=== PATIENT | female | born 1955 | race Caucasian/White ===

== ENCOUNTER 2018-04-21 15:31 | Inpatient (IN) | payer SELFPAY ==
[~2018-04-21 15:31] MED LIST: Iopamidol 370 76% 100 ML VIAL ONE
[2018-04-21] MEDS ORDERED: Ondansetron PF 4 MG/2 ML Vial ONE (17:35)
[2018-04-21] MEDS ORDERED: Insulin Regular 300 UNITS/3 ML VIAL ONE (17:35)
[2018-04-21] MEDS ORDERED: Morphine 2 MG/ML SYRINGE ONE (18:52)
--- NOTE | 2018-04-21 19:39 | CT ---
CT OF RIGHT LOWER EXTREMITY PERFORMED WITH AND WITHOUT CONTRAST ENHANCEMENT: 04/21/18 HISTORY: Patient stepped on a screw approximately 12 days ago. Cleaned the wound and not bother until four day s ago when she began having pain and chills. Patient is a diabetic. There are subcutaneous edema changes which are more pronounced along the plantar side of the foot. I do not appreciate any abscess collection. There is no air dissecting within the soft tissues. Calcane al spurs are present. No signs of any acute fractures. There is an old appearing avulsive type injury from the anterolateral side of the distal tibia. The margins of this are corticated and this does no t appear to represent an acute injury. IMPRESSION: 1. Cellulitis changes. No signs of any soft tissue abscess or findings that would suggest osteom yelitis. 2. Old tibial injury. POS: [facility]
[2018-04-21 19:45] VITALS: BMI 27.4
[2018-04-21] MEDS ORDERED: Morphine 4 MG/ML VIAL SLOW IVP PRN (20:04)
[2018-04-21] MEDS ORDERED: Ondansetron ODT 4 MG TAB SL PRN (20:07)
[2018-04-21] MEDS ORDERED: Acetaminophen 325 MG TAB PO PRN (20:07)
[2018-04-21] MEDS: Ondansetron PF 4 MG/2 ML Vial IVP PRN (21:18)
[2018-04-21] MEDS ORDERED: Dextrose 50% Abboject 50 ML SYRINGE SLOW IVP PRN (23:12)
[2018-04-21] MEDS ORDERED: Dextrose 5% in Water 1,000 ML IV PRN (23:12)
[2018-04-21] MEDS ORDERED: HumaLOG 300 UNITS/3 ML VIAL SC PRN (23:12)
[2018-04-21] MEDS ORDERED: VANCOMYCIN IVPB PRN (23:26)
[2018-04-21] MEDS ORDERED: Vancomycin HCl 1.75 GM in Sodium Chloride 0.9% 500 ML IVPB SCH (23:59)
[2018-04-21] MEDS ORDERED: Clindamycin/D5W 900 MG in Premix Bag 1 BAG IVPB SCH (23:59)
[2018-04-22] MEDS ORDERED: Vancomycin HCl 1 GM in Premix Bag 1 BAG IVPB SCH ×2 (01:00→23:59)
[2018-04-22] MEDS: Ondansetron PF 4 MG/2 ML Vial IVP PRN ×2 (03:07→08:29)
[2018-04-22 05:46] LABS: #Monocytes 0.5 thou/uL (0.11-0.59); #Neutrophils 6.4 thou/uL (1.40-6.50); %Basophils 0.2 % (0.0-1.0); %Eosinophils 0.5 % (0.0-10.0); %Monocytes 5.7 % (0.0-10.0); %Neutrophils 81.6 % (42.0-75.0); Hemoglobin 9.9 g/dL (12.0-16.0); Mean Corpuscular HGB CONC 33.3 g/dL (32.0-36.0); Mean Corpuscular Hemoglobin 30.3 pg (27.0-31.0); Mean Corpuscular Volume 90.9 fL (78.0-98.0); Platelet Count 245 thou/uL (130-400); RBC Distribution Width 12.3 % (11.5-14.5); Red Blood Cell (RBC) Count 3.26 mill/uL (4.20-5.40); White Blood Cell (WBC) Count 7.9 thou/uL (4.8-10.8)
[2018-04-22 06:03] LABS: Anion Gap 16 mmol/L (10-20); BUN (Urea Nitrogen) 16 mg/dL (9.8-20.1); Calc. Creatinine Clearance 90 mL/min (70-130); Calcium 8.6 mg/dL (7.8-10.44); Carbon Dioxide 19 mmol/L (23-31); Chloride 103 mmol/L (98-107); Estimated GFR-MDRD 76; Glucose 323 mg/dL (80-115); Potassium 3.6 mmol/L (3.5-5.1); Sodium 134 mmol/L (136-145)
[2018-04-22] MEDS: Gabapentin 300 MG CAP PO SCH ×4 (08:25→20:51)
[2018-04-22] MEDS ORDERED: Dextrose 50% Abboject 50 ML SYRINGE SLOW IVP PRN (09:00)
[2018-04-22] MEDS ORDERED: HumaLOG 300 UNITS/3 ML VIAL SC PRN (09:00)
[2018-04-22 09:33] LABS: Hemoglobin A1c 11.1 % (4.0-6.0)
[2018-04-22] MEDS ORDERED: Sodium Chloride 0.9% 1,000 ML IV SCH (10:45)
[2018-04-22] MEDS ORDERED: Gadobenate Dimeglumine 529 MG/1 ML (20ML VIAL) ONE (10:53)
[2018-04-22] MEDS ORDERED: Meropenem 1 GM in Sodium Chloride 0.9% 100 ML IVPB SCH (11:00)
[2018-04-22] MEDS ORDERED: Famotidine/PF 20 mg/2ml Vial SLOW IVP SCH (11:00)
[2018-04-22] MEDS: Sodium Chloride 0.9% 1,000 ML IV SCH ×3 (11:02→20:53)
[2018-04-22 11:34] LABS: ALT (SGPT) 8 U/L (8-55); AST (SGOT) 10 U/L (5-34); Albumin 3.5 g/dL (3.4-4.8); Alkaline Phosphatase 239 U/L (40-150); Anion Gap 14 mmol/L (10-20); BUN (Urea Nitrogen) 16 mg/dL (9.8-20.1); Bilirubin, Total 0.7 mg/dL (0.2-1.2); Calc. Creatinine Clearance 85 mL/min (70-130); Calcium 9.2 mg/dL (7.8-10.44); Carbon Dioxide 21 mmol/L (23-31); Chloride 104 mmol/L (98-107); Estimated GFR-MDRD 72; Globulin 3.5 g/dL (2.4-3.5); Glucose 297 mg/dL (80-115); Lipase 6 U/L (8-78); Magnesium 2.2 mg/dL (1.6-2.6); Potassium 3.4 mmol/L (3.5-5.1); Sodium 136 mmol/L (136-145)
[2018-04-22] MEDS: Insulin Glargine 10 UNITS in Pre-Filled Syringe 1 EACH SC SCH (11:57)
[2018-04-22] MEDS: HumaLOG 300 UNITS/3 ML VIAL SC PRN ×2 (11:58→17:57)
[2018-04-22] MEDS ORDERED: MEROPENEM 1 GM/50 ML 1 GM in Premix Bag 1 BAG IVPB SCH ×2 (13:00→14:45)
[2018-04-22 13:17] LABS: Bilirubin Negative (Negative); Blood, Urine Large (Negative); Clarity CLOUDY (Clear); Glucose, Urine (Dipstick) >=1000 mg/dL (Negative); Leukocyte Small (Negative); Nitrite Negative (Negative); Protein, Urine (Dipstick) 30 mg/dL (Neg-Trace); Specific Gravity, Urine 1.024 (1.002-1.036); pH, Urine 5.5 (5.0-9.0)
[2018-04-22 13:19] LABS: Bacteria/HPF None Seen HPF (None Seen); Hyaline Casts/LPF 0-3 HYALINE CAST LPF (0-3 Hyaline); Pathc Cast-AUWi Flag 0.14 (0-2.49); RBC/HPF GREATER THAN 50-TNTC HPF (0-3); Squamous Epithelial 0-3 HPF (0-3)
--- NOTE | 2018-04-22 14:46 | HP ---
PRIMARY CARE PHYSICIAN: Dr. Lian Joseph CODE STATUS: Full code. TIME OF EVALUATION: 2300 hours. CHIEF COMPLAINT: Right plantar ulcer with cellulitis. HISTORY OF PRESENT ILLNESS: This is a 62-year-old female patient with past medical history of diabetes, neuropathy, kidney stones, came to the hospital after having an ulcer on the right foot in the plantar area, she noticed for the first time was a week ago, when she reported that a nail had injured her foot, and she did not notice that it was getting that bad. She also reported that she had to take a trip and then the foot was getting worse very quickly. The pain was severe, associated with redness, swelling, inability to bear weight on that foot due to pain. REVIEW OF SYSTEMS: CONSTITUTIONAL: No fever, chills, or generalized weakness. RESPIRATORY: No cough, sputum production, or shortness of breath. CARDIOVASCULAR: No chest pain or palpitations. GASTROINTESTINAL: No nausea. No vomiting. No diarrhea. No abdominal pain. DATA REPORT ANALYST: No dizziness, headache, or feeling lightheaded. GENITOURINARY: No burning on urination. EXTREMITIES: The patient has right plantar area with significant open nonhealing wound for about 1 inch with blackish fungus, surrounded by significant areas of erythema and tenderness. All other systems were reviewed and negative expect for the findings as mentioned above. PAST MEDICAL HISTORY: As reviewed in the HPI. PAST SURGICAL HISTORY: Cholecystectomy, hysterectomy, tonsillectomy. PSYCHIATRIC HISTORY: SOCIAL HISTORY: No alcohol. No drugs. No smoking history. ALLERGIES: KNOWN ALLERGIES TO PENICILLIN. REPORTED MEDICATIONS: Gabapentin. PHYSICAL EXAMINATION: VITAL SIGNS: On presentation, temperature 99.9, blood pressure 160/71, with heart rate of 90, respiratory rate was 18. GENERAL APPEARANCE: The patient is alert, oriented, not in acute distress. HEENT: Normal conjunctivae. Moist oral mucosa. Anicteric. NECK: No JVD. RESPIRATORY: Bilateral air entry. No rales. No wheezing. Symmetric expansion. CARDIOVASCULAR: Normal rate, regular rhythm. No murmurs. No gallops. No edema. ABDOMEN: Soft. Normal bowel sounds. MUSCULOSKELETAL: She has baseline range of motion and strength. No tenderness 1 inch, that is a nonhealing ulcer surrounded by severe redness and swelling. EXTREMITIES: Peripheral pulses are present. Capillary refill seems to be intact. NEUROLOGIC: No evidence of any new focal weakness. The patient has bilateral decrease in sensation. PSYCH: The patient is in good mood, not sad, oriented. Optimal judgment. DIAGNOSTIC STUDIES: CT was reviewed, which shows cellulitic changes, no signs of any soft tissue abscess or findings that would suggest osteomylitis. Labs were reviewed. The ESR for the patient was 16. White count 10.7, hemoglobin of 10.5, and platelet count 234. Chemistry; sodium 133, potassium 3.7, chloride 99, carbon dioxide 22, anion gap 16, BUN 18, creatinine 0.8. GFR 65. Glucose 134. Total bilirubin 1.4, AST 14, ALT 13, alkaline phosphatase 241. C-reactive protein 18.3. ASSESSMENT AND PLAN: The patient was placed in the hospital with the following medical problems: 1. Right foot cellulitis with nonhealing diabetic foot. The patient was placed on broad-spectrum antibiotics. We will consult Surgery for evaluation. No evidence of osteomyelitis at this point. Wound Care already seen the patient in evaluation. 2. Uncontrolled diabetes. We will place the patient on sliding scale, adjust treatment as needed. 3. Normocytic anemia with hemoglobin of 10.5 as inpatient. 4. Hyponatremia. The patient has sodium of 133. We will monitor, this is mild, no need for any acute intervention at this point. 5. Deep vein thrombosis prophylaxis. 6. Uncontrolled blood pressure with systolic of 160 and diastolic 71. The patient reported that she is not taking any medication for blood pressure. We will start small dose of blood pressure medications. We will monitor and we will adjust treatment as needed. Job ID: [id number]
[2018-04-22] MEDS: Promethazine HCl 25 MG in Sodium Chloride 0.9% 50 ML IVPB PRN ×2 (14:48→20:52)
[2018-04-22] MEDS: Ketorolac Tromethamine 30 MG/ML VIAL IVP PRN (18:34)
--- NOTE | 2018-04-22 20:34 | MRI ---
MRI OF RIGHT FOOT PERFORMED WITH AND WITHOUT CONTRAST ENHANCEMENT: Date: 04/22/18 HISTORY: Right foot ulcer and cellulitis. Patient reportedly stepped on a screw. Evaluation for abscess or ost eomyelitis. FINDINGS: A marker is placed on the plantar aspect of the foot near the second and third metatarsophalangeal andrew ints. There are some edema changes within the soft tissues, mainly subcutaneous. There are some edema changes within the intrinsic plantar musculature of the foot, but I see no signs of any abscess marilyn ection and no evidence for osteomyelitis. IMPRESSION: No MR evidence for osteomyelitis or soft tissue abscess. POS: [facility]
[2018-04-22] MEDS ORDERED: Famotidine 20 MG TAB PO SCH (21:00)
--- NOTE | 2018-04-22 22:14 | PDOC.PN ---
- Subjective Encounter Start Date: 04/22/18 Encounter Start Time: 11:00 Patient seen and examined for diabetic foot infection. Intractable N/V. No abd pain. No fever/headache or AMS. Chart reviewed. No other complaints. No overnight events - Objective Resuscitation Status - Order Detail: 04/21/18 23:08 Resuscitation Status Routine Resuscitation Status: FULL: Full Resuscitation MAR Reviewed: Yes Vital Signs & Weight: Vital Signs (12 hours) Temp Pulse Resp BP Pulse Ox 04/22/18 20:00 99.1 F 98 16 120/76 98 04/22/18 17:44 98.2 F 94 16 138/68 99 04/22/18 11:57 98.3 F 104 H 20 176/76 H 100 Weight Admit Weight 165 lb Weight 165 lb I&O: 04/21/18 04/22/18 04/23/18 06:59 06:59 06:59 Intake Total 1939 Balance 1939 Result Diagrams: 04/23/18 05:16 04/23/18 05:16 Additional Labs: Accuchecks 04/22/18 04/22/18 04/22/18 21:03 16:44 11:16 POC Glucose 156 H 262 H 283 H 04/22/18 05:27 POC Glucose 295 H Radiology Reviewed by me: Yes (CT LE - No Osteo) Phys Exam - Physical Examination in distress due to N/V HEENT: PERRLA, moist MMs Neck: no JVD, supple no neck stiffness Respiratory: no wheezing, no rales, no rhonchi, clear to auscultation bilateral Cardiovascular: RRR, no rub no heaves/pulsations Gastrointestinal: soft, non-tender, no distention, positive bowel sounds Musculoskeletal: no edema Rt foot ulcer with cellulitis Neurological: non-focal, normal sensation, moves all 4 limbs Psychiatric: normal affect, A&O x 3 Skin: no rash Dx/Plan (1) Diabetic foot infection Code(s): E11.628 - TYPE 2 DIABETES MELLITUS WITH OTHER SKIN COMPLICATIONS; L08.9 - LOCAL INFECTION OF THE SKIN AND SUBCUTANEOUS TISSUE, UNSP Status: Acute Comment: with cellulitis (2) DKA (diabetic ketoacidoses) Code(s): E13.10 - OTH DIABETES MELLITUS WITH KETOACIDOSIS WITHOUT COMA Status : Acute (3) Hyponatremia Code(s): E87.1 - HYPO-OSMOLALITY AND HYPONATREMIA Status: Acute (4) Chronic pain syndrome Code(s): G89.4 - CHRONIC PAIN SYNDROME Status: Chronic (5) HTN (hypertension) Code(s): I10 - ESSENTIAL (PRIMARY) HYPERTENSION Status: Acute (6) DM2 (diabetes mellitus, type 2) Status: Acute Qualifiers: Chronic kidney disease stage: stage 2 (mild) Comment: uncontrolled. - Plan DVT proph w/SCDs * Change IV Cipro to Meropenem * Await Podiatry input * Consult ID * IVF with SQ Insulin for DKA * Antiemetics * Grease Cup Filler consult * AM labs * Counselled on DM2 Laboratory Tests 04/21/18 04/22/18 04/22/18 16:46 04:19 10:56 Hemoglobin A1c 11.1 H C-Reactive Protein 18.30 H Lipase 6 L B-Hydroxybutyrate 04/22/18 11:00 Hemoglobin A1c C-Reactive Protein Lipase B-Hydroxybutyrate 3.12 H Review of Systems - Review of Systems Respiratory: negative: Cough, Dry, Shortness of Breath, Hemoptysis, SOB with Excertion, Pleuritic Pain, Sputum, Wheezing Cardiovascular: negative: chest pain, palpitations, orthopnea, paroxysmal nocturnal dyspnea, edema, light headedness, other - Medications/Allergies Allergies/Adverse Reactions: Allergies Allergy/AdvReac Type Severity Reaction Status Date / Time Penicillins Allergy Verified 04/21/18 20:15 Medications: Current Medications Dextrose/Water (Dextrose 50%) 25 gm SLOW IVP PRN PRN PRN Reason: Hypoglycemia Famotidine (Pepcid) 20 mg SLOW IVP DAILY [facility] Gabapentin (Neurontin) 600 mg PO BID [facility] Last Admin: 04/22/18 20:51 Dose: 600 mg Glucagon (Glucagon) 1 mg IM PRN PRN PRN Reason: Hypoglycemia Dextrose/Water (D5w) 1,000 mls @ 0 mls/hr IV .Q0M PRN PRN Reason: Hypoglycemia Vancomycin HCl 1 gm/ Device 200 mls @ 200 mls/hr IVPB 2359 [facility] Insulin Glargine 10 units/ (Miscellaneous Medication) 0.1 mls @ 0 mls/hr SC QAM [facility] Last Admin: 04/22/18 11:57 Dose: 0.1 mls Sodium Chloride (Normal Saline 0.9%) 1,000 mls @ 150 mls/hr IV .Q6H40M [facility] Last Admin: 04/22/18 20:53 Dose: 1,000 mls Promethazine HCl 25 mg/ Sodium (Chloride) 51 mls @ 102 mls/hr IVPB Q6H PRN PRN Reason: Nausea Last Admin: 04/22/18 20:52 Dose: 51 mls Meropenem 1 gm/ Device 50 mls @ 50 mls/hr IVPB Q8HR [facility] Insulin Human Lispro (Humalog) 0 units SC .BEDTIME SLIDING SC PRN PRN Reason: Bedtime Correctional Scale Insulin Human Lispro (Humalog) 0 units SC .MODERATE SLIDING SC PRN PRN Reason: Moderate Correctional Scale Last Admin: 04/22/18 17:57 Dose: 6 unit Ketorolac Tromethamine (Toradol) 15 mg IVP Q6H PRN PRN Reason: Pain Stop: 04/27/18 10:57 Last Admin: 04/22/18 18:34 Dose: 15 mg Miscellaneous Medication (Pharmacy To Dose) 1 each IVPB PRN PRN PRN Reason: DIABETIC FOOT INFXN. Ondansetron HCl (Zofran) 4 mg IVP Q6H PRN PRN Reason: Nausea/Vomiting Stop: 04/25/18 04:45 Last Admin: 04/22/18 08:29 Dose: 4 mg
[2018-04-22] MEDS: MEROPENEM 1 GM/50 ML 1 GM in Premix Bag 1 BAG IVPB SCH (22:16)
[2018-04-23] MEDS: MEROPENEM 1 GM/50 ML 1 GM in Premix Bag 1 BAG IVPB SCH ×3 (05:24→21:12)
[2018-04-23 05:42] LABS: #Eosinphils 0.1 thou/uL (0.0-0.7); #Lymphocytes 1.5 thou/uL (1.20-3.40); #Monocytes 0.6 thou/uL (0.11-0.59); #Neutrophils 6.6 thou/uL (1.40-6.50); %Basophils 0.2 % (0.0-1.0); %Eosinophils 1.2 % (0.0-10.0); %Lymphocytes 17.3 % (21.0-51.0); %Monocytes 7.1 % (0.0-10.0); %Neutrophils 74.2 % (42.0-75.0); Hemoglobin 9.2 g/dL (12.0-16.0); Mean Corpuscular HGB CONC 34.8 g/dL (32.0-36.0); Mean Corpuscular Hemoglobin 31.8 pg (27.0-31.0); Mean Corpuscular Volume 91.3 fL (78.0-98.0); Mean Platelet Volume 6.6 fL (7.4-10.4); Platelet Count 275 thou/uL (130-400); RBC Distribution Width 12.3 % (11.5-14.5); Red Blood Cell (RBC) Count 2.89 mill/uL (4.20-5.40); White Blood Cell (WBC) Count 8.9 thou/uL (4.8-10.8)
[2018-04-23 05:59] LABS: ALT (SGPT) 7 U/L (8-55); AST (SGOT) 10 U/L (5-34); Alkaline Phosphatase 185 U/L (40-150); Anion Gap 11 mmol/L (10-20); BUN (Urea Nitrogen) 16 mg/dL (9.8-20.1); Bilirubin, Total 0.4 mg/dL (0.2-1.2); Calc. Creatinine Clearance 80 mL/min (70-130); Calcium 8.3 mg/dL (7.8-10.44); Carbon Dioxide 21 mmol/L (23-31); Chloride 109 mmol/L (98-107); Estimated GFR-MDRD 67; Globulin 2.9 g/dL (2.4-3.5); Glucose 172 mg/dL (80-115); Phosphorus 2.6 mg/dL (2.3-4.7); Potassium 3.2 mmol/L (3.5-5.1); Protein, Total 5.9 g/dL (6.0-8.3); Sodium 138 mmol/L (136-145)
[2018-04-23] MEDS: HumaLOG 300 UNITS/3 ML VIAL SC PRN ×2 (06:00→18:31)
[2018-04-23] MEDS: Sodium Chloride 0.9% 1,000 ML IV SCH (06:01)
[2018-04-23] MEDS: Insulin Glargine 10 UNITS in Pre-Filled Syringe 1 EACH SC SCH (08:19)
[2018-04-23] MEDS: Gabapentin 300 MG CAP PO SCH ×2 (08:19→21:11)
[2018-04-23] MEDS: Famotidine/PF 20 mg/2ml Vial SLOW IVP SCH (08:19)
--- NOTE | 2018-04-23 08:29 | CON ---
DATE OF CONSULTATION: 04/22/2018 REASON FOR CONSULTATION: Foot infection. HISTORY OF PRESENT ILLNESS: A 62-year-old with history of nephrolithiasis, type 2 diabetes, who sustained a perforating injury to the right foot about a week before admission from a screw that penetrated through her flip flop sandals. She tried to clean it, but subsequently developed inflammatory changes, pain and chills, and was sent for admission. No headaches, visual symptoms, sore throat, odynophagia, or dysphagia; has developed vomiting, nausea, and some abdominal cramps after antimicrobials were started. She had 1 loose stool since admission. No genitourinary symptoms. No other joint symptoms. No neurological symptoms. PAST MEDICAL HISTORY: Type 2 diabetes, skin abscesses in hands, nephrolithiasis , hip dislocation. PAST SURGICAL HISTORY: Includes cholecystectomy, hysterectomy, appendectomy, and tonsillectomy. SOCIAL HISTORY: No alcoholic beverage use and no history of smoking. ALLERGIES: PENICILLIN WITH RASH. FAMILY HISTORY: Noncontributory. MEDICATIONS: Current meds: 1. Pepcid. 2. Neurontin. 3. Glucagon. 4. Insulin. 5. Meropenem. 6. Vancomycin. PHYSICAL EXAMINATION: VITAL SIGNS: T-max 98.3, blood pressure 170/76, pulse 104, respirations 16 to 20 , O2 saturation 100. SKIN: Demonstrates the right foot ulcerated area with a necrotic center at the 2nd MPJ skin site, plantar aspect. There is a band of yellowishness under the skin epithelium layer radiating proximally from this ulcer. There is erythema in the dorsal aspect of the foot and edema. HEENT: No lymphadenopathy. Ocular movements conjugate. Oral cavity normal. NECK: Supple. LUNGS: Symmetric, clear breath sounds. HEART: S1, S2. Regular rate. ABDOMEN: Soft, nondistended, nontender. No bladder distention. No other joint inflammatory activity. Pulses are excellent in the lower extremities. Cap refill is normal. NEURO: Nonfocal including cognitive function. LABORATORY DATA: White cell count 7.9, hemoglobin 9.9, platelets 245, with 81% neutrophils. Sodium 134, creatinine 0.77. Normal liver profile. Alkaline phosphatase 239, albumin 3.5. 2 sets of blood cultures pending at this time. There is a CT of lower extremity, which was done yesterday; this was a contrast study. There was evidence of subcutaneous edema, more pronounced along the plantar side of the foot. No abscess collection observed. ASSESSMENT: Diabetes type 2 with a perforating injury, right foot with necrotic ulcer. DISCUSSION: Those perforating injuries have a high risk for development into more complicated processes. We will order an MRI and consultation with Podiatry. Probably will need a surgical debridement. If she has osteomyelitis, then treatment will be with antimicrobial therapy unless there are destructive changes noted in the MRI , but those are not apparent in the plain films and CT scan. Switch her to [facility]. Job ID: [id number] MTDD
[2018-04-23] MEDS: 1/2 NS w/KCL 20 mEq 1,000 ML IV SCH ×2 (08:47→18:46)
[2018-04-23] MEDS: Ketorolac Tromethamine 30 MG/ML VIAL IVP PRN (14:55)
--- NOTE | 2018-04-23 20:50 | PDOC.PN ---
- Subjective Encounter Start Date: 04/23/18 Encounter Start Time: 12:00 Patient seen and examined for Rt foot cellulitis. Rt foot pain +. N/V improving. No other complaints. No overnight events - Objective Resuscitation Status - Order Detail: 04/21/18 23:08 Resuscitation Status Routine Resuscitation Status: FULL: Full Resuscitation MAR Reviewed: Yes Vital Signs & Weight: Vital Signs (12 hours) Temp Pulse Resp BP Pulse Ox 04/23/18 20:00 99.7 F H 94 20 97/60 97 Weight Admit Weight 165 lb Weight 165 lb I&O: 04/22/18 04/23/18 04/24/18 06:59 06:59 06:59 Intake Total 3590 2175 Balance 3590 2175 Result Diagrams: 04/24/18 05:58 04/24/18 05:58 Additional Labs: Accuchecks 04/23/18 04/23/18 04/23/18 20:09 16:18 11:26 POC Glucose 191 H 218 H 155 H 04/23/18 04/23/18 04/22/18 05:00 01:57 21:03 POC Glucose 167 H 172 H 156 H Phys Exam - Physical Examination Constitutional: NAD Respiratory: no wheezing, no rhonchi Cardiovascular: RRR, no rub Gastrointestinal: soft, non-tender, positive bowel sounds Musculoskeletal: no edema Rt foot cellulitis - unchanged Dx/Plan (1) Diabetic foot infection Code(s): E11.628 - TYPE 2 DIABETES MELLITUS WITH OTHER SKIN COMPLICATIONS; L08.9 - LOCAL INFECTION OF THE SKIN AND SUBCUTANEOUS TISSUE, UNSP Status: Acute Comment: with cellulitis (2) DKA (diabetic ketoacidoses) Code(s): E13.10 - OTH DIABETES MELLITUS WITH KETOACIDOSIS WITHOUT COMA Status : Acute Qualifiers: Diabetes mellitus type: type 2 (3) Hyponatremia Code(s): E87.1 - HYPO-OSMOLALITY AND HYPONATREMIA Status: Acute (4) Chronic pain syndrome Code(s): G89.4 - CHRONIC PAIN SYNDROME Status: Chronic (5) HTN (hypertension) Code(s): I10 - ESSENTIAL (PRIMARY) HYPERTENSION Status: Acute (6) DM2 (diabetes mellitus, type 2) Status: Acute Qualifiers: Chronic kidney disease stage: stage 2 (mild) Comment: uncontrolled. - Plan DVT proph w/SCDs Await Podiatry input -: AM labs -: Cont Atbx/Wound care -: Cont sliding scale with Lantus -: Cont other meds as below Review of Systems - Review of Systems Respiratory: negative: Cough, Dry, Shortness of Breath, Hemoptysis, SOB with Excertion, Pleuritic Pain, Sputum, Wheezing Cardiovascular: negative: chest pain, palpitations, orthopnea, paroxysmal nocturnal dyspnea, edema, light headedness, other - Medications/Allergies Allergies/Adverse Reactions: Allergies Allergy/AdvReac Type Severity Reaction Status Date / Time Penicillins Allergy Verified 04/21/18 20:15 Medications: Current Medications Dextrose/Water (Dextrose 50%) 25 gm SLOW IVP PRN PRN PRN Reason: Hypoglycemia Famotidine (Pepcid) 20 mg SLOW IVP DAILY [facility] Last Admin: 04/23/18 08:19 Dose: 20 mg Gabapentin (Neurontin) 600 mg PO BID [facility] Last Admin: 04/23/18 08:19 Dose: 600 mg Glucagon (Glucagon) 1 mg IM PRN PRN PRN Reason: Hypoglycemia Dextrose/Water (D5w) 1,000 mls @ 0 mls/hr IV .Q0M PRN PRN Reason: Hypoglycemia Vancomycin HCl 1 gm/ Device 200 mls @ 200 mls/hr IVPB 2359 [facility] Last Admin: 04/22/18 23:13 Dose: 200 mls Insulin Glargine 10 units/ (Miscellaneous Medication) 0.1 mls @ 0 mls/hr SC QAM [facility] Last Admin: 04/23/18 08:19 Dose: 0.1 mls Promethazine HCl 25 mg/ Sodium (Chloride) 51 mls @ 102 mls/hr IVPB Q6H PRN PRN Reason: Nausea Last Admin: 04/22/18 20:52 Dose: 51 mls Meropenem 1 gm/ Device 50 mls @ 50 mls/hr IVPB Q8HR [facility] Last Admin: 04/23/18 14:37 Dose: 50 mls Potassium Chloride/Sodium Chloride (1/2 Ns W/Kcl 20 Meq) 1,000 mls @ 125 mls/ hr IV .Q8H [facility] Last Admin: 04/23/18 18:46 Dose: 1,000 mls Sodium Chloride (Normal Saline 0.9%) 1,000 mls @ 100 mls/hr IV .Q10H [facility] Insulin Human Lispro (Humalog) 0 units SC .BEDTIME SLIDING SC PRN PRN Reason: Bedtime Correctional Scale Insulin Human Lispro (Humalog) 0 units SC .MODERATE SLIDING SC PRN PRN Reason: Moderate Correctional Scale Last Admin: 04/23/18 18:31 Dose: 4 unit Ketorolac Tromethamine (Toradol) 15 mg IVP Q6H PRN PRN Reason: Pain Stop: 04/27/18 10:57 Last Admin: 04/23/18 14:55 Dose: 15 mg Miscellaneous Medication (Pharmacy To Dose) 1 each IVPB PRN PRN PRN Reason: DIABETIC FOOT INFXN. Ondansetron HCl (Zofran) 4 mg IVP Q6H PRN PRN Reason: Nausea/Vomiting Stop: 04/25/18 04:45 Last Admin: 04/22/18 08:29 Dose: 4 mg
--- NOTE | 2018-04-23 22:36 | HP ---
HISTORY OF PRESENT ILLNESS: Gifty uQintana is a 62-year-old female, who is admitted with right foot problem. She several weeks ago stepped on a screw, is diabetic and removed the foreign body, washed the foot with soap and water, applied antibiotic ointment. She presented to the hospital and was admitted 2 days ago. She had been on intravenous antibiotics. Cellulitis over the dorsum of the foot has receded somewhat, although she has a plantar necrotic tissue beneath the metatarsal plantar joint of the right second toe. CAT scan of the foot reveals soft tissue swelling as did MRI. I have been asked to see her regarding this diabetic foot infection. Podiatry was called 2 days ago and has not yet seen her and on Thursday night, we informed that they would not be able to see her. I was thus called to see her tonight. Dr. Chatman saw her on 04/22/2018 and antibiotics have been adjusted. ALLERGIES: PENICILLIN. SOCIAL HISTORY: Tobacco, none. Alcohol, none. MEDICATIONS: Gabapentin in the hospital. She is on; 1. Sliding scale insulin. 2. Gabapentin. 3. Meropenem. 4. Vancomycin. PAST SURGICAL HISTORY: Appendectomy, cholecystectomy, tonsillectomy, total abdominal hysterectomy and bilateral salpingo-oophorectomy. PAST MEDICAL HISTORY: Neuropathy, diabetes mellitus, and hypertension. SOCIAL HISTORY: The patient lives in [place]. She is . REVIEW OF SYSTEMS: Ten-point noncontributory. PHYSICAL EXAMINATION: VITAL SIGNS: Height 5 feet and 5 inches, weight 165 pounds, BMI 27, temperature 99.4, pulse 87, and blood pressure 122/61. HEAD, EARS, EYES, NOSE AND THROAT: Unremarkable. LUNGS: Clear to auscultation. CARDIAC: Regular rate and rhythm without murmur or gallop. ABDOMEN: Obese, soft, and nontender. EXTREMITIES: Palpable femoral, popliteal, dorsalis pedis, posterior tibial pulses. Right foot reveals cellulitis with the dorsum of the foot. On the plantar aspect beneath the metatarsophalangeal joint of the second toe, there is a necrotic tissue. This extends down the metatarsophalangeal joint on probing. There is purulent discharge. LABORATORY DATA: Blood cultures negative. Cultures not obtained of the foot. CT scan of the foot and MRI did not reveal bony changes, although probing reveals the wound extends down the metatarsophalangeal joint. White count 8, hemoglobin 9.2. Comprehensive metabolic profile normal. Normal renal function. ASSESSMENT/PLAN: Diabetic right foot infection. We would recommend debridement of the right foot. Unfortunately, she has eaten a regular diabetic diet just prior to me seeing her. This will have to be done over the next few days over the weekend when she has adequate n.p.o. status. I have recommended debridement of the right foot with probable amputation of the right second toe and metatarsal and by secondary intention with a wound VAC. There are no radiological CAT scan or MRI changes of osteomyelitis, but this is a deep infection and I am sure amputation will probably be needed and will be prepared to do that in the operating room. Job ID: [id number]
[2018-04-23 23:35] LABS: Vancomycin, Trough 6.7 ug/mL
[2018-04-24] MEDS: Vancomycin HCl 1 GM in Premix Bag 1 BAG IVPB SCH ×3 (00:31→23:54)
[2018-04-24] MEDS: 1/2 NS w/KCL 20 mEq 1,000 ML IV SCH ×2 (04:04→10:41)
[2018-04-24] MEDS: HumaLOG 300 UNITS/3 ML VIAL SC PRN ×3 (06:29→17:23)
[2018-04-24] MEDS: MEROPENEM 1 GM/50 ML 1 GM in Premix Bag 1 BAG IVPB SCH ×3 (06:29→21:55)
[2018-04-24 06:31] LABS: #Eosinphils 0.1 thou/uL (0.0-0.7); #Lymphocytes 1.3 thou/uL (1.20-3.40); #Monocytes 0.6 thou/uL (0.11-0.59); #Neutrophils 6.5 thou/uL (1.40-6.50); %Basophils 0.3 % (0.0-1.0); %Eosinophils 0.8 % (0.0-10.0); %Lymphocytes 15.4 % (21.0-51.0); %Monocytes 7.2 % (0.0-10.0); %Neutrophils 76.2 % (42.0-75.0); Hemoglobin 9.3 g/dL (12.0-16.0); Mean Corpuscular HGB CONC 34.4 g/dL (32.0-36.0); Mean Corpuscular Volume 90.2 fL (78.0-98.0); Mean Platelet Volume 6.5 fL (7.4-10.4); Platelet Count 280 thou/uL (130-400); RBC Distribution Width 12.5 % (11.5-14.5); Red Blood Cell (RBC) Count 2.99 mill/uL (4.20-5.40); White Blood Cell (WBC) Count 8.5 thou/uL (4.8-10.8)
[2018-04-24 06:53] LABS: Anion Gap 12 mmol/L (10-20); BUN (Urea Nitrogen) 11 mg/dL (9.8-20.1); Calc. Creatinine Clearance 91 mL/min (70-130); Calcium 8.2 mg/dL (7.8-10.44); Carbon Dioxide 19 mmol/L (23-31); Chloride 106 mmol/L (98-107); Estimated GFR-MDRD 77; Glucose 270 mg/dL (80-115); Potassium 3.6 mmol/L (3.5-5.1); Sodium 133 mmol/L (136-145)
[2018-04-24] MEDS ORDERED: Sodium Chloride 0.9% 1,000 ML IV SCH (08:00)
[2018-04-24] MEDS ORDERED: Fentanyl 100 MCG/2 ML VIAL ONE (09:24)
[2018-04-24] MEDS ORDERED: Midazolam HCl 2 mg/2 ml Vial ONE (09:32)
[2018-04-24] MEDS: Gabapentin 300 MG CAP PO SCH ×2 (10:41→20:23)
[2018-04-24] MEDS ORDERED: Morphine Sulfate 2 MG/ML SYRINGE SLOW IVP PRN (10:44)
[2018-04-24] MEDS ORDERED: PACU-Morphine 4MG/ML VIAL SLOW IVP PRN (10:44)
[2018-04-24] MEDS ORDERED: HYDROmorphone 2 MG/ML VIAL SLOW IVP PRN (10:44)
[2018-04-24] MEDS ORDERED: Meperidine HCl/PF 25 MG/ML VIAL SLOW IVP PRN (10:44)
[2018-04-24] MEDS ORDERED: Promethazine HCl 25 MG/ML VIAL IM PRN (10:44)
[2018-04-24] MEDS ORDERED: Ondansetron HCl/PF 4 MG/2 ML Vial IVP PRN (10:44)
[2018-04-24] MEDS ORDERED: Promethazine HCl 25 MG/ML VIAL SLOW IVP PRN (10:44)
[2018-04-24] MEDS ORDERED: traMADol HCl 50 MG TAB PO PRN (10:46)
[2018-04-24] MEDS ORDERED: Ondansetron ODT 8 MG TAB PO PRN (10:50)
[2018-04-24] MEDS ORDERED: Ondansetron ODT 4 MG TAB PO PRN (10:50)
[2018-04-24] MEDS: Acetaminophen 500 MG TAB PO PRN (11:27)
[2018-04-24] MEDS ORDERED: Ondansetron PF 4 MG/2 ML Vial ONE (12:41)
[2018-04-24] MEDS ORDERED: Metoclopramide HCl 10 MG/2 ML VIAL ONE (12:41)
[2018-04-24] MEDS ORDERED: PROPOFOL 200 MG/20 ML VIAL ONE (12:41)
[2018-04-24] MEDS ORDERED: Lidocaine 1% PF 5 ML VIAL ONE (12:41)
[2018-04-24] MEDS: Insulin Glargine 10 UNITS in Pre-Filled Syringe 1 EACH SC SCH ×2 (14:08→14:29)
[2018-04-24] MEDS: Famotidine/PF 20 mg/2ml Vial SLOW IVP SCH (14:08)
--- NOTE | 2018-04-24 14:09 | OP ---
DATE OF PROCEDURE: 04/24/2018 PREOPERATIVE DIAGNOSIS: Right foot infection, diabetic with plantar gangrene extending to the metatarsophalangeal joint with negative CT scan, MRI, x-ray of the foot for osteo. PROCEDURE PERFORMED: Debridement of right foot plantar blistered skin and debridement of gangrenous skin, soft tissues extending into the second metatarsophalangeal joint, right foot with resection of the right second toe metatarsal with wound VAC application. Note, excellent blood supply. Excellent pulsatile bleeding. ANESTHESIA: General LMA. DESCRIPTION OF PROCEDURE: The patient was taken to the operating room, where under general anesthesia, right foot was prepared with ChloraPrep and draped in routine fashion. Debridement of the skin, plantar revealed underlying intact skin, except overlying the plantar metatarsophalangeal joint second toe area, where there was a gangrenous 2 cm plug of tissue excised down to the metatarsophalangeal joint, where the tendons and the bone were exposed, thus the second toe and metatarsal were resected opening much plantar skin as possible, resecting the metatarsal with a bone cutter, resecting it proximally with a rongeur. Wound irrigated. Connective tissue debrided sharply. Hemostasis gained with the cautery. Wound Care Team arrived to place wound VAC after it was irrigated. Note, the patient was in the hospital for 2 days. Podiatry was consulted, but they did say that they did not have the resources to see her until I was consulted last night to see her while she is eating a regular diabetic diet. Job ID: [id number]
[2018-04-24] MEDS: traMADol HCl 50 MG TAB PO PRN ×2 (14:12→17:22)
[2018-04-24] MEDS: Ibuprofen 600 MG TAB PO PRN (17:44)
[2018-04-24] MEDS: Ketorolac Tromethamine 30 MG/ML VIAL IVP PRN (21:54)
--- NOTE | 2018-04-24 23:21 | PDOC.PN ---
- Subjective Encounter Start Date: 04/24/18 Encounter Start Time: 12:00 Patient seen and examined for diabetic foot infection. s/p I&D with 2nd toe amputation today. No new complaints. No overnight events - Objective Resuscitation Status - Order Detail: 04/21/18 23:08 Resuscitation Status Routine Resuscitation Status: FULL: Full Resuscitation MAR Reviewed: Yes Vital Signs & Weight: Vital Signs (12 hours) Temp Pulse Resp BP BP Pulse Ox 04/24/18 20:23 97 04/24/18 20:00 98.1 F 87 16 121/63 97 04/24/18 17:25 98.1 F 85 18 152/74 H 98 04/24/18 11:51 98.6 F 88 18 138/68 95 04/24/18 11:40 88 20 145/68 H 99 04/24/18 11:25 99.2 F 95 20 172/77 H 99 Weight Admit Weight 165 lb Weight 165 lb I&O: 04/23/18 04/24/18 04/25/18 06:59 06:59 06:59 Intake Total 3590 3565 1800 Output Total 1800 Balance 3590 3565 0 Result Diagrams: 04/24/18 05:58 04/24/18 05:58 Additional Labs: Accuchecks 04/24/18 04/24/18 04/24/18 21:22 16:39 11:41 POC Glucose 259 H 248 H 185 H 04/24/18 05:25 POC Glucose 274 H Phys Exam - Physical Examination Constitutional: NAD Respiratory: no wheezing, no rhonchi Cardiovascular: RRR, no rub Gastrointestinal: soft, non-tender, positive bowel sounds Musculoskeletal: no edema Rt foot dressing Neurological: moves all 4 limbs Dx/Plan (1) Diabetic foot infection Code(s): E11.628 - TYPE 2 DIABETES MELLITUS WITH OTHER SKIN COMPLICATIONS; L08.9 - LOCAL INFECTION OF THE SKIN AND SUBCUTANEOUS TISSUE, UNSP Status: Acute Comment: with cellulitis (2) DKA (diabetic ketoacidoses) Code(s): E13.10 - OTH DIABETES MELLITUS WITH KETOACIDOSIS WITHOUT COMA Status : Acute Qualifiers: Diabetes mellitus type: type 2 (3) Hyponatremia Code(s): E87.1 - HYPO-OSMOLALITY AND HYPONATREMIA Status: Acute (4) Chronic pain syndrome Code(s): G89.4 - CHRONIC PAIN SYNDROME Status: Chronic (5) HTN (hypertension) Code(s): I10 - ESSENTIAL (PRIMARY) HYPERTENSION Status: Acute (6) DM2 (diabetes mellitus, type 2) Status: Chronic Qualifiers: Chronic kidney disease stage: stage 2 (mild) Comment: uncontrolled. - Plan continue antibiotics, DVT proph w/SCDs Cont Vanc/Meropenem with wound care -: Add Glipizide, Increase Lantus dose, Cont Mod sliding scale -: AM labs -: Cont other meds as below Review of Systems - Review of Systems Respiratory: negative: Cough, Dry, Shortness of Breath, Hemoptysis, SOB with Excertion, Pleuritic Pain, Sputum, Wheezing Cardiovascular: negative: chest pain, palpitations, orthopnea, paroxysmal nocturnal dyspnea, edema, light headedness, other - Medications/Allergies Allergies/Adverse Reactions: Allergies Allergy/AdvReac Type Severity Reaction Status Date / Time Penicillins Allergy Verified 04/21/18 20:15 Medications: Current Medications Acetaminophen (Tylenol) 1,000 mg PO Q6H PRN PRN Reason: Moderate to Severe Pain (6-10) Last Admin: 04/24/18 11:27 Dose: 1,000 mg Dextrose/Water (Dextrose 50%) 25 gm SLOW IVP PRN PRN PRN Reason: Hypoglycemia Gabapentin (Neurontin) 600 mg PO BID [facility] Last Admin: 04/24/18 20:23 Dose: 600 mg Glipizide (Glucotrol) 5 mg PO BID[facility] Glucagon (Glucagon) 1 mg IM PRN PRN PRN Reason: Hypoglycemia Dextrose/Water (D5w) 1,000 mls @ 0 mls/hr IV .Q0M PRN PRN Reason: Hypoglycemia Insulin Glargine 10 units/ (Miscellaneous Medication) 0.1 mls @ 0 mls/hr SC QAM [facility] Last Admin: 04/24/18 14:29 Dose: 0.1 mls Promethazine HCl 25 mg/ Sodium (Chloride) 51 mls @ 102 mls/hr IVPB Q6H PRN PRN Reason: Nausea Last Admin: 04/22/18 20:52 Dose: 51 mls Meropenem 1 gm/ Device 50 mls @ 50 mls/hr IVPB Q8HR [facility] Last Admin: 04/24/18 21:55 Dose: 50 mls Vancomycin HCl 1 gm/ Device 200 mls @ 200 mls/hr IVPB 1200,2359 [facility] Last Admin: 04/24/18 11:27 Dose: 200 mls Ibuprofen (Motrin) 600 mg PO Q6H PRN PRN Reason: Pain Last Admin: 04/24/18 17:44 Dose: 600 mg Insulin Human Lispro (Humalog) 0 units SC .BEDTIME SLIDING SC PRN PRN Reason: Bedtime Correctional Scale Last Admin: 04/24/18 22:06 Dose: 3 unit Insulin Human Lispro (Humalog) 0 units SC .MODERATE SLIDING SC PRN PRN Reason: Moderate Correctional Scale Last Admin: 04/24/18 17:23 Dose: 4 unit Ketorolac Tromethamine (Toradol) 15 mg IVP Q6H PRN PRN Reason: Pain Stop: 04/27/18 10:57 Last Admin: 04/24/18 21:54 Dose: 15 mg Miscellaneous Medication (Pharmacy To Dose) 1 each IVPB PRN PRN PRN Reason: DIABETIC FOOT INFXN. Ondansetron HCl (Zofran) 4 mg IVP Q6H PRN PRN Reason: Nausea/Vomiting Stop: 04/25/18 04:45 Last Admin: 04/22/18 08:29 Dose: 4 mg Ondansetron HCl (Zofran Odt) 8 mg PO BIDPRN PRN PRN Reason: Nausea/Vomiting Ondansetron HCl (Zofran Odt) 4 mg PO Q6H PRN PRN Reason: Nausea/Vomiting Tramadol HCl (Ultram) 50 mg PO Q6H PRN PRN Reason: Pain Last Admin: 04/24/18 17:22 Dose: 50 mg Tramadol HCl (Ultram) 100 mg PO Q6H PRN PRN Reason: Pain
[2018-04-25] MEDS: MEROPENEM 1 GM/50 ML 1 GM in Premix Bag 1 BAG IVPB SCH ×3 (05:12→21:00)
[2018-04-25] MEDS: HumaLOG 300 UNITS/3 ML VIAL SC PRN (06:16)
[2018-04-25 07:51] LABS: #Eosinphils 0.1 thou/uL (0.0-0.7); #Lymphocytes 0.8 thou/uL (1.20-3.40); #Monocytes 0.4 thou/uL (0.11-0.59); #Neutrophils 3.8 thou/uL (1.40-6.50); %Basophils 0.2 % (0.0-1.0); %Eosinophils 2.8 % (0.0-10.0); %Lymphocytes 14.9 % (21.0-51.0); %Monocytes 8.2 % (0.0-10.0); %Neutrophils 73.9 % (42.0-75.0); Mean Corpuscular Volume 91.4 fL (78.0-98.0); Mean Platelet Volume 6.6 fL (7.4-10.4); Platelet Count 229 thou/uL (130-400); RBC Distribution Width 12.4 % (11.5-14.5); Red Blood Cell (RBC) Count 2.81 mill/uL (4.20-5.40); White Blood Cell (WBC) Count 5.1 thou/uL (4.8-10.8)
[2018-04-25 08:03] LABS: Anion Gap 11 mmol/L (10-20); BUN (Urea Nitrogen) 11 mg/dL (9.8-20.1); Calc. Creatinine Clearance 97 mL/min (70-130); Calcium 8.3 mg/dL (7.8-10.44); Carbon Dioxide 25 mmol/L (23-31); Chloride 106 mmol/L (98-107); Estimated GFR-MDRD 83; Glucose 258 mg/dL (80-115); Potassium 3.7 mmol/L (3.5-5.1); Sodium 138 mmol/L (136-145)
[2018-04-25] MEDS: glipiZIDE 5 MG TAB PO SCH ×2 (08:29→17:00)
[2018-04-25] MEDS: Gabapentin 300 MG CAP PO SCH ×2 (08:29→20:15)
[2018-04-25] MEDS: Ibuprofen 600 MG TAB PO PRN (08:30)
[2018-04-25] MEDS: traMADol HCl 50 MG TAB PO PRN ×2 (08:32→17:01)
[2018-04-25] MEDS: Insulin Glargine 15 UNITS in Pre-Filled Syringe 1 EACH SC SCH (08:33)
[2018-04-25] MEDS ORDERED: Ketorolac Tromethamine 30 MG/ML VIAL IVP PRN (09:00)
[2018-04-25] MEDS ORDERED: ALPRAZolam 0.5 MG TAB PO PRN (09:02)
[2018-04-25] MEDS ORDERED: Enoxaparin Sodium 40 MG/0.4 ML SYRINGE SC SCH (10:00)
--- NOTE | 2018-04-25 10:30 | PRG ---
DATE OF SERVICE: 04/25/2018 SUBJECTIVE: The patient is seen and examined at the bedside. She seems to be quite anxious during my visit. She is concerned about infection she has in her right foot. Her appetite is fair. Bowel movements daily. OBJECTIVE: VITAL SIGNS: Blood pressure is 144/76, pulse is 78, temperature is 97.9, maximal temperature for the last 24 hours is 100.9, respiratory rate 12, O2 saturation is 97% on room air. HEENT: The head is atraumatic, normocephalic. Eyes are PERRLA. Sclerae are nonicteric. Oral mucosa is moist. NECK: Supple. No lymphadenopathy. Thyroid is not palpable. LUNGS: Clear. HEART: S1 and S2, normal. No S3. No S4. No murmur. ABDOMEN: Soft and nontender. Bowel sounds are present. No organomegaly. EXTREMITIES: Right foot is wrapped. There is a wound VAC in place. There is not much swelling in the ankle area. LABORATORY DATA: Labs showed white count of 5.1, hemoglobin 9.0, hematocrit 25.7, platelet count 229,000. Normal electrolytes, normal kidney function, and normal BUN. Her glucose is 258. Microbiology: Right foot bacterial culture, Gram stain showed few wbc's, few gram-positive cocci, and few yeasts. Preliminary report on culture is Staphylococcus aureus, quantitation is few, and further results are pending. Two blood cultures, negative. IMPRESSION: 1. Diabetic foot infection and cellulitis, status post debridement of the right foot plantar blistered skin and debridement of gangrenous skin and soft tissues extending into the second metatarsophalangeal joint along with right foot with resection of the right 2nd toe metatarsal with wound VAC application. 2. Diabetic ketoacidosis, resolved. 3. Hyponatremia, resolved. 4. Chronic pain syndrome. 5. Hypertension, stable. 6. Diabetes mellitus. Her glycemia is ranging more than 200. Her insulin was increased from 10 to 15 units, and she was started on oral glipizide. PLAN: To continue both antibiotics until we have final reports on cultures, vancomycin and meropenem. We will continue wound care. We will continue wound VAC. We will do Accu-Cheks a.c. and at bedtime and watch her closely to get her glycemia under 200 today with new dosing on both insulin and newly-started antidiabetic pill. We will continue DVT prophylaxis. Job ID: [id number]
[2018-04-25 11:51] LABS: Vancomycin, Trough 13.5 ug/mL
--- NOTE | 2018-04-25 12:43 | PRG ---
DATE OF SERVICE: 04/25/2018 SUBJECTIVE: Gifty Quintana is doing well today. Her pain is under good control. Wound VAC is in place and has been improved. Once the wound VAC is acquired, she could be discharged home tomorrow on oral antibiotics and follow up in my office in 2 to 3 weeks. She can weight bear as tolerated with a postoperative shoe when she is out of bed. She lives in [place] and home health nursing can be established for wound VAC care. We will look at her wound tomorrow. Job ID: [id number]
[2018-04-25] MEDS: Vancomycin HCl 1.25 GM in Sodium Chloride 0.9% 250 ML 250 ML IVPB SCH ×2 (12:48→23:09)
[2018-04-25] MEDS: Acetaminophen 500 MG TAB PO PRN (20:15)
[2018-04-26] MEDS: MEROPENEM 1 GM/50 ML 1 GM in Premix Bag 1 BAG IVPB SCH ×2 (05:44→14:26)
[2018-04-26] MEDS: glipiZIDE 5 MG TAB PO SCH ×2 (08:20→16:35)
[2018-04-26] MEDS: Gabapentin 300 MG CAP PO SCH (08:21)
[2018-04-26] MEDS: Insulin Glargine 15 UNITS in Pre-Filled Syringe 1 EACH SC SCH (08:25)
[2018-04-26] MEDS ORDERED: Enoxaparin Sodium 40 MG/0.4 ML SYRINGE SC SCH (09:00)
[2018-04-26] MEDS: Vancomycin HCl 1.25 GM in Sodium Chloride 0.9% 250 ML 250 ML IVPB SCH (12:05)
[2018-04-26] MEDS: HumaLOG 300 UNITS/3 ML VIAL SC PRN ×2 (12:08→16:35)
--- NOTE | 2018-04-26 14:46 | DIS ---
DATE OF ADMISSION: 04/21/2018 DATE OF DISCHARGE: 04/26/2018 PRIMARY CARE PROVIDER: Domitila Joseph. DISPOSITION: Discharged to home. FINAL DIAGNOSES: 1. Diabetic ulcer on the plantar surface of the right foot. 2. Diabetes mellitus, type 2. DISCHARGE MEDICATIONS: Insulin glargine 16 units subcu q.a.m. ALLERGIES: PENICILLINS. HOWEVER, SHE STATED THAT SINCE SHE WAS TOLD SHE HAD PENICILLIN ALLERGY, SHE HAS TAKEN AMPICILLIN, AMOXICILLIN, SO THAT IT IS NOT, AT THIS TIME, CONSIDERED AN ALLERGY. DIET: Diabetic. CODE STATUS: Full. PENDING AT TIME OF DISCHARGE: Nothing. HOSPITAL COURSE: The patient presented to the emergency room, painful lesion on the plantar surface of her right foot. She had stepped on a screw. She had been washing it, putting topical antibiotics on it. She has a history of diabetes and diabetic neuropathy without any listed medications. She was taken to the operating room on 04/24/[address] Arsenio Bray and underwent debridement and resection of right second toe. She is currently being followed by wound VAC by Wound Care. She has a wound VAC on and has been discharged with a wound VAC to be followed up by [facility] outpatient Wound Care. She was also seen in consultation by Dr. Yeison Chatman. She has no elevated white count. No fever. The postop wound is clean and she is being discharged on Vibramycin. She notes no significant pain in the site even with dressing changes. Follow up in 7 days with Domitila Joseph. Follow up in 2 to [address] Arsenio Bray. Job ID: [id number]
[2018-04-26 16:58] VITALS: BP 135/66; TEMP 99
--- NOTE | 2018-04-26 17:45 | PRG ---
DATE OF SERVICE: 04/26/2018 SUBJECTIVE: The patient had a resection of the 2nd toe at the ray level. The operative report was reviewed. Pathology is pending at this time. OBJECTIVE: VITAL SIGNS: Otherwise normal. LUNGS: Clear. HEART: S1, S2. Regular rate. ABDOMEN: Soft, not distended. LABORATORY DATA: Microbiology: Right foot Staph aureus and enterococcus species. Pending susceptibility and identification and the labs are not particularly remarkable. ASSESSMENT AND DISCUSSION: Type 2 diabetes with perforating injury of right foot with necrotic ulcer, status post ray amputation. The patient should have a clear margin since the bone did not appear involved, just the soft tissue. She is eligible for discharge planning on oral antimicrobial therapy guided by the susceptibility results of the organisms identified in the latest sample. Job ID: [id number]
--- NOTE | 2018-04-26 17:51 | PRG ---
DATE OF SERVICE: 04/26/2018 Ms. Quintana is doing well today. Her foot looks good. The wound is granulating. The wound VAC is reapplied. From a surgical standpoint, the patient is ready to be discharged home. She can follow up in my office in 2 to 3 weeks. Home Health will do a wound VAC. Job ID: [id number]
--- NOTE | 2018-04-27 22:26 | EKG ---
Test Reason : Blood Pressure : / mmHG Vent. Rate : 100 BPM Atrial Rate : 100 BPM P-R Int : 144 ms QRS Dur : 086 ms QT Int : 368 ms P-R-T Axes : 052 007 049 degrees QTc Int : 474 ms Poor data quality, interpretation may be adversely affected Normal sinus rhythm Normal ECG No previous ECGs available Confirmed by Alexia HAYWARD ([id number]) on 04/27/2018 10:26:18 PM Referred By: CARLOS Confirmed By:Alexia HAYWARD
== END 2018-04-26 17:38 | disposition home or self-care (01) | DRG 629 ==
LOC: ERS 15:31 → T4-B 17:05
PROVIDERS: ADMIT Internal Medicine; ATTEND Internal Medicine
PROC: 0QBN0ZZ Excision of Right Metatarsal, Open Approach (ICD-10-PCS; principal; 2018-04-21)
DX: E11.621 Type 2 diabetes mellitus with foot ulcer (principal); E11.52 Type 2 diabetes mellitus with diabetic peripheral angiopathy with gangrene; L03.115 Cellulitis of right lower limb; I96 Gangrene, not elsewhere classified; E87.1 Hypo-osmolality and hyponatremia; E11.628 Type 2 diabetes mellitus with other skin complications; L97.519 Non-pressure chronic ulcer of other part of right foot with unspecified severity; Z79.4 Long term (current) use of insulin; E13.10 Other specified diabetes mellitus with ketoacidosis without coma; G89.4 Chronic pain syndrome; I10 Essential (primary) hypertension
CPT/HCPCS: 36415; 36416; 80048; 80053; 80202; 81001; 82010; 83036; 83690; 83735; 84100; 85025; 85652; 86140; 87070; 87077; 87186; 87205; 88305; 88311; 93005; 93010; 96374; 96375; A9579; G8978-GP-CJ; G8979-GP-CJ; G8980-GP-CJ; J0744; J1650; J1815; J1885; J2001; J2185; J2250; J2270; J2405; J2550; J2704; J2765; J3010; J3370; J3490; J7050; S0028

== ENCOUNTER 2018-04-28 15:56 | Outpatient (CLI) | payer SELFPAY ==
[~2018-04-28 15:56] MED LIST changes: -Iopamidol 370 76% 100 ML VIAL ONE; +Sodium Chloride 3% (15 ML) NEB ONE
== END 2018-04-28 15:57 | disposition home or self-care (01) ==
LOC: WCC 15:56
PROVIDERS: ATTEND Family Medicine
DX: T81.89XD Other complications of procedures, not elsewhere classified, subsequent encounter (principal)
CPT/HCPCS: 97605

== ENCOUNTER 2018-04-30 13:45 | Outpatient (CLI) | payer SELFPAY ==
[2018-04-30] MEDS ORDERED: Sodium Chloride 0.9% 15 ML NEB ONE (15:00)
== END 2018-04-30 13:46 | disposition home or self-care (01) ==
LOC: WCC 13:45
PROVIDERS: ATTEND Podiatrist Foot & Ankle Surgery
DX: T81.89XD Other complications of procedures, not elsewhere classified, subsequent encounter (principal)
CPT/HCPCS: 97605; A4218

== ENCOUNTER 2018-05-04 10:19 | Outpatient (CLI) | payer SELFPAY ==
[2018-05-04] MEDS ORDERED: Sodium Chloride 0.9% 15 ML NEB ONE (15:00)
== END 2018-05-04 10:20 | disposition home or self-care (01) ==
LOC: WCC 10:19
PROVIDERS: ATTEND Podiatrist Foot & Ankle Surgery
DX: T81.89XD Other complications of procedures, not elsewhere classified, subsequent encounter (principal)
CPT/HCPCS: 97605; A4218

== ENCOUNTER 2018-05-10 12:33 | Outpatient (CLI) | payer SELFPAY ==
[2018-05-10] MEDS ORDERED: Sodium Chloride 0.9% 15 ML NEB ONE (14:23)
== END 2018-05-10 12:34 | disposition home or self-care (01) ==
LOC: WCC 12:33
PROVIDERS: ATTEND Podiatrist Foot & Ankle Surgery
DX: T81.89XD Other complications of procedures, not elsewhere classified, subsequent encounter (principal)
CPT/HCPCS: 97605; A4218

== ENCOUNTER 2018-05-14 10:57 | Outpatient (CLI) | payer SELFPAY ==
[~2018-05-14 10:57] MED LIST changes: +Lidocaine 2% PF 100 mg/5 ml Syringe ONE; +Sodium Chloride 0.9% 15 ML NEB ONE; -Sodium Chloride 3% (15 ML) NEB ONE
--- NOTE | 2018-05-14 17:23 | PRG ---
DATE OF SERVICE: 05/14/2018 SUBJECTIVE: A 62-year-old female, who returns today for followup ulceration, status post right second toe amputation. Has been doing well with wound VAC changes. Had no problems or acute events over the last week. Denies nausea, vomiting, fevers, or chills. She thinks the wound is actually looking better. OBJECTIVE: Ulceration to the right second toe amputation site measuring 3.8 cm x 1.8 cm x 2.5 cm of depth with 25% slough, 75% granulation tissue. No periwound erythema, edema, or warmth. ASSESSMENT: Non-pressure chronic ulceration, status post right second toe amputation. PLAN: 1. Full-thickness debridement of subcutaneous tissue layer removing all nonviable tissue, slough, and biofilm from the wound base down to bleeding granular wound base. This was performed with a sterile 15 blade and dermal curette. The patient tolerated procedure well without need for anesthesia. 2. Going to continue with wound VAC changes three times a week at 125 mmHg negative pressure. Continuous therapy on the wound VAC. 3. The patient will follow up with me in 1 week. Job ID: [id number]
== END 2018-05-14 10:58 | disposition home or self-care (01) ==
LOC: WCC 10:57
PROVIDERS: ATTEND Podiatrist Foot & Ankle Surgery
DX: L97.519 Non-pressure chronic ulcer of other part of right foot with unspecified severity (principal); Z89.421 Acquired absence of other right toe(s)
CPT/HCPCS: 11042; 36416; A4218; J2001

== ENCOUNTER 2018-05-19 10:39 | Outpatient (CLI) | payer OTHER, SELFPAY ==
[2018-05-19] MEDS ORDERED: Sodium Chloride 0.9% 15 ML NEB ONE (15:00)
== END 2018-05-19 10:40 | disposition home or self-care (01) ==
LOC: WCC 10:39
PROVIDERS: ATTEND Podiatrist Foot & Ankle Surgery
DX: L97.519 Non-pressure chronic ulcer of other part of right foot with unspecified severity (principal); Z89.421 Acquired absence of other right toe(s)
CPT/HCPCS: 97605; A4218

== ENCOUNTER 2018-05-21 10:59 | Outpatient (CLI) | payer SELFPAY ==
[2018-05-21] MEDS ORDERED: Sodium Chloride 0.9% 15 ML NEB ONE (15:00)
--- NOTE | 2018-05-21 16:20 | PRG ---
DATE OF SERVICE: 05/21/2018 WOUND CLINIC NOTE SUBJECTIVE: A 62-year-old female returns today, status post right second toe amputation, doing well with wound VAC changes over the last week. No acute events. Denies nausea, vomiting, fevers, chills. She has been sitting in her bed, watching [employer] movies much as possible. OBJECTIVE: Open ulceration to the right second toe amputation site measuring 3 cm x 1.5 cm x 2.7 cm, has 75% granulation tissue, 25% slough. No periwound erythema, edema, or warmth. There is moderate serosanguineous drainage. Does not probe to tendon or bone. ASSESSMENT: Non-pressure chronic ulceration to the right second toe, status post right second digit amputation. PLAN: 1. Full-thickness debridement of subcutaneous tissue layer removing all nonviable tissue and biofilm from the wound base, as well as all slough by sharp debridement with dermal curette and 15 blade scalpel. The patient tolerated the procedure well. 2. Going to continue with wound VAC changes three times a week. VAC is set at 125 mm of continual therapy. The patient will follow up with me in one week. Job ID: [id number]
== END 2018-05-21 11:00 | disposition home or self-care (01) ==
LOC: WCC 10:59
PROVIDERS: ATTEND Podiatrist Foot & Ankle Surgery
DX: L97.519 Non-pressure chronic ulcer of other part of right foot with unspecified severity (principal); Z89.421 Acquired absence of other right toe(s)
CPT/HCPCS: 11042; A4218

== ENCOUNTER 2018-05-25 10:55 | Outpatient (CLI) | payer OTHER, SELFPAY | END 2018-05-25 10:56 | disposition home or self-care (01) | LOC: WCC 10:55 | PROVIDERS: ATTEND Podiatrist Foot & Ankle Surgery | DX: Z48.89 Encounter for other specified surgical aftercare (principal); Z98.890 Other specified postprocedural states | CPT/HCPCS: 97605 ==

== ENCOUNTER 2018-05-28 09:41 | Outpatient (CLI) | payer OTHER, SELFPAY ==
[2018-05-28] MEDS ORDERED: Sodium Chloride 0.9% 15 ML NEB ONE (13:50)
--- NOTE | 2018-05-28 16:53 | PRG ---
DATE OF SERVICE: 05/28/2018 WOUND CLINIC NOTE SUBJECTIVE: A 62-year-old female returns today for followup, right second toe amputation. She has been having wound VAC changes three times a week. No issues since last visit. Denies nausea, vomiting, fevers or chills. OBJECTIVE: Ulcer to the right second toe amputation site measuring 3.3 cm x 1.5 cm and only 0.8 cm of depth, 100% granulation tissue. Light serosanguineous drainage. Some slight macerations around the border. No periwound erythema or edema or warmth. ASSESSMENT: Non pressure chronic ulceration of right second toe amputation site. PLAN: 1. Full-thickness debridement of subcutaneous tissue layer removing all nonviable tissue and biofilm from the wound base down to bleeding granular wound base. The patient tolerated the procedure well. 2. I am going to discontinue the wound VAC at this time and start her on a daily collagen gauze dressing change. She can follow up with me in one week. Job ID: [id number]
== END 2018-05-28 09:42 | disposition home or self-care (01) ==
LOC: WCC 09:41
PROVIDERS: ATTEND Podiatrist Foot & Ankle Surgery
DX: T87.89 Other complications of amputation stump (principal); L97.519 Non-pressure chronic ulcer of other part of right foot with unspecified severity
CPT/HCPCS: 97602

== ENCOUNTER 2018-06-04 11:14 | Outpatient (CLI) | payer SELFPAY ==
[~2018-06-04 11:14] MED LIST changes: -Lidocaine 2% PF 100 mg/5 ml Syringe ONE
--- NOTE | 2018-06-04 11:59 | PRG ---
DATE OF SERVICE: 06/04/2018 WOUND CLINIC NOTE SUBJECTIVE: A 62-year-old female returns today, status post right 2nd toe amputation. She has been using collagen dressing changes on a daily basis. No acute events. Denies nausea or vomiting, fevers or chills. OBJECTIVE: Ulceration to the right 2nd toe amputation site measuring 3 cm x 1 cm x 0.6 cm of depth. There is 100% granulation tissue. One central area of hypergranular tissue. Does not probe to tendon or bone. No periwound erythema, edema, or warmth. ASSESSMENT: Non-pressure chronic ulceration, status post right 2nd toe amputation. PLAN: 1. Full-thickness debridement of subcutaneous tissue layer removing all nonviable tissue and biofilm from the wound base. The Hypergranular tissue was resected as well. The patient tolerated the procedure well. 2. We are going to continue with daily collagen dressing changes. She will follow up with me in 1 week. Job ID: [id number]
== END 2018-06-04 11:15 | disposition home or self-care (01) ==
LOC: WCC 11:14
PROVIDERS: ATTEND Podiatrist Foot & Ankle Surgery
DX: L97.519 Non-pressure chronic ulcer of other part of right foot with unspecified severity (principal); Z89.421 Acquired absence of other right toe(s)
CPT/HCPCS: 11042; A4218

== ENCOUNTER 2018-06-11 09:18 | Outpatient (CLI) | payer SELFPAY ==
--- NOTE | 2018-06-11 10:22 | PRG ---
DATE OF SERVICE: 06/11/2018 WOUND CLINIC NOTE SUBJECTIVE: A 62-year-old female who follows up for chronic wound, status post right second toe amputation. Has been doing daily gauze dressing changes. Denies acute events since last visit. Denies nausea, vomiting, fevers or chills. PHYSICAL EXAMINATION: Ulceration to the right second toe amputation site measuring 4 cm x 0.9 cm with 0.7 cm of depth at the deepest point and has 100% granular tissue. There is a large, about 50% of the tissue that is actually hypergranular above the skin edges. Does not probe deep to tendon or bone. No periwound erythema, edema or warmth. ASSESSMENT: Non-pressure chronic ulceration to the right second toe amputation site. PLAN: Full-thickness debridement of the subcutaneous tissue layer removing all nonviable tissue above from the wound base. The hypergranular tissue was excised with tissue nippers. There was moderate amount of bleeding, which was cauterized with silver nitrate sticks. Dressing was applied including dry gauze, Karlo, and tape, and Coban for compression purposes. The patient will restart wet-to-dry dressing changes on a daily basis starting tomorrow. I discussed with her followup care as I will not be at the Wound Clinic hear anymore. Told her that she could follow up with me in my [facility] or continue to come to the Wound Care Center here on a different day. She needs to discuss this with her transportation and will make a decision, but I gave her my phone number for my office, if she decides to go that direction and recommend that she be seen within the next week. Job ID: [id number]
[2018-06-11] MEDS ORDERED: Sodium Chloride 0.9% 15 ML NEB ONE (11:11)
== END 2018-06-11 09:19 | disposition home or self-care (01) ==
LOC: WCC 09:18
PROVIDERS: ATTEND Podiatrist Foot & Ankle Surgery
DX: L97.519 Non-pressure chronic ulcer of other part of right foot with unspecified severity (principal); Z89.421 Acquired absence of other right toe(s)
CPT/HCPCS: 11042; A4218

== ENCOUNTER 2018-06-16 10:01 | Outpatient (CLI) | payer SELFPAY ==
--- NOTE | 2018-06-16 10:17 | PRG ---
DATE OF SERVICE: 06/16/2018 HISTORY: Ms. Gifty Quintana is a very pleasant 62-year-old who presents to the Wound Center for evaluation of a wound of the right foot subsequent to amputation of the second toe on 04/24/[address] Arsenio Bray. Since the patient's last visit to the Wound Center Ms. Quintana has apparently been performing dressing changes of Promogran for her right foot wound. The patient has no complaints today. She denies any fever or chills. PHYSICAL EXAMINATION: VITAL SIGNS: Temperature 97.7, pulse 94, blood pressure 158/72. Accu-Chek 240. EXTREMITIES: A wound of the right foot is present which measures approximately 2.9 x 0.5 cm. Granulation tissue is present within the wound margins. Nonviable tissue present within the wound margins was debrided with an excisional full-thickness debridement with the use of scissors and a curette. No purulent drainage is associated with the wound. No cellulitis of the right foot is appreciated. No maceration of the skin of the periwound is noted. A pedal pulse is palpable on the right. No significant edema of the right foot is present on exam today. ASSESSMENT AND PLAN: 1. Wound of right foot subsequent to amputation of the second toe. Dressing changes of Promogran will be continued every other day or alternatively three times per week after cleansing and irrigation. The patient will continue to perform her own dressing changes. I will see Ms. Quintana again in 2 weeks. 2. Diabetes mellitus. The patient's Accu-Chek in clinic today is 240. The patient has been told that for optimal wound healing her blood glucoses should remain below 150. Job ID: [id number]
[2018-06-16] MEDS ORDERED: Lidocaine 2% PF 100 mg/5 ml Syringe ONE (15:00)
[2018-06-16] MEDS ORDERED: Sodium Chloride 0.9% 15 ML NEB ONE (15:00)
== END 2018-06-16 10:02 | disposition home or self-care (01) ==
LOC: WCC 10:01
PROVIDERS: ATTEND Family Medicine
DX: T81.89XD Other complications of procedures, not elsewhere classified, subsequent encounter (principal); E11.9 Type 2 diabetes mellitus without complications; Z89.421 Acquired absence of other right toe(s)

== ENCOUNTER 2018-06-28 09:51 | Outpatient (CLI) | payer SELFPAY ==
[~2018-06-28 09:51] MED LIST changes: +Lidocaine 2% PF 100 mg/5 ml Syringe ONE
--- NOTE | 2018-06-28 10:17 | PRG ---
DATE OF SERVICE: 06/28/2018 HISTORY: Ms. Gifty Quintana is a very pleasant 63-year-old who presents to the Wound Center for evaluation of a wound of the right foot subsequent to amputation of the second toe on 04/24/[address] Arsenio Bray. The patient states she has been on her feet a great deal, caring for her mother. The patient has no complaints today. She denies any fever or chills. PHYSICAL EXAMINATION: VITAL SIGNS: Temperature 97.7, pulse 88, respirations 18, blood pressure 170/83. Accu-Chek 184. EXTREMITIES: A wound of the right foot is present which measures approximately 2.0 x 0.8 cm. Granulation tissue is present within the wound margins. A sample of granulation tissue was excised with the use of scissors and sent for aerobic and anaerobic cultures. No purulent drainage is associated with the wound. Erythema of the skin surrounding the wound is present. No maceration of the skin of the periwound is noted. ASSESSMENT AND PLAN: 1. Wound of right foot subsequent to amputation of the second toe. Dressing changes of Promogran will be discontinued. Dressing changes of Silvercel will be initiated today. These dressing changes are to be performed every other day or alternatively 3 times per week after cleansing and irrigation; 4x4s and Kerlix will be utilized as secondary dressings. The patient will continue to perform her own dressing changes. The patient has been given a prescription for Keflex 500 mg #21 p.o. b.i.d. x10 days. I will see Ms. Quintana again in 2 weeks. 2. Diabetes mellitus. The patient's Accu-Chek in clinic today is 184. The patient has been reminded that for optimal wound healing her blood glucoses should remain below 150. Job ID: [id number]
== END 2018-06-28 09:52 | disposition home or self-care (01) ==
LOC: WCC 09:51
PROVIDERS: ATTEND Family Medicine
DX: T81.89XD Other complications of procedures, not elsewhere classified, subsequent encounter (principal); E11.9 Type 2 diabetes mellitus without complications
CPT/HCPCS: 87070; 87077; 87102; 87205; A4218; J2001

== ENCOUNTER 2018-07-12 12:09 | Outpatient (CLI) | payer SELFPAY ==
--- NOTE | 2018-07-12 09:49 | PRG ---
DATE OF SERVICE: 07/12/2018 HISTORY: Ms. Gifty Quintana is a very pleasant 63-year-old who presents to the Wound Center for evaluation of a wound of the right foot subsequent to amputation of the second toe on 04/24/[address] Arsenio Bray. Since the patient's last visit, Ms. Quintana has been performing dressing changes of Silvercel for her right foot wound. Ms. Quintana has no complaints today. She denies any fever or chills. PHYSICAL EXAMINATION: VITAL SIGNS: Temperature 97.9, pulse 81, respirations 18, blood pressure 178/79. Accu-Chek 152. EXTREMITIES: A wound of the right foot is present which measures approximately 1.0 x 0.3 cm. Granulation tissue is present within the wound margins. No purulent drainage is associated with the wound. No cellulitis of the right foot is appreciated. No maceration of the skin of the periwound is noted. ASSESSMENT AND PLAN: 1. Wound of right foot subsequent to amputation of the second toe. Dressing changes of Silvercel will be continued. 4x4s and Kerlix will be continued as secondary dressings. The patient will continue to perform her own dressing changes. I will see Ms. Quintana again in 2 weeks. 2. Diabetes mellitus. The patient's Accu-Chek in clinic today is 152. The patient has been reminded that for optimal wound healing, her blood glucoses should remain below 150. Job ID: [id number]
[~2018-07-12 12:09] MED LIST changes: -Lidocaine 2% PF 100 mg/5 ml Syringe ONE
== END 2018-07-12 12:10 | disposition home or self-care (01) ==
LOC: WCC 12:09
PROVIDERS: ATTEND Family Medicine
DX: T81.89XD Other complications of procedures, not elsewhere classified, subsequent encounter (principal); E11.9 Type 2 diabetes mellitus without complications; Z89.421 Acquired absence of other right toe(s)
CPT/HCPCS: A4218

== ENCOUNTER 2018-08-02 09:23 | Outpatient (CLI) | payer SELFPAY ==
--- NOTE | 2018-08-02 09:58 | PRG ---
DATE OF SERVICE: 08/02/2018 HISTORY: Ms. Gifty Quintana is a very pleasant 63-year-old, who presents to the Wound Center for evaluation of a wound of the right foot subsequent to amputation of the second toe on 04/24/[address] Arsenio Bray. Since the patient's last visit, Ms. Quintana has been performing dressing changes of Silvercel for her right foot wounds. The patient has no complaints today. She denies any fever or chills. PHYSICAL EXAMINATION: VITAL SIGNS: Temperature 97.4, pulse 89, respirations 16, blood pressure 191/94. Accu-Chek 142. EXTREMITIES: A wound of the right foot is present which measures approximately 0.5 x 0.2 cm. Granulation tissue is present within the wound margins. No purulent drainage is associated with the wound. No cellulitis of the right foot is appreciated. No maceration of the skin of the periwound is noted. ASSESSMENT AND PLAN: 1. Wound of right foot subsequent to amputation of the second toe. Dressing changes of Silvercel will be continued, 4x4s and Kerlix will be utilized as secondary dressings. The patient will continue to perform her own dressing changes on a daily basis after cleansing and irrigation. I will see Ms. Quintana again in 2 weeks if her wound is still present at this time. 2. Diabetes mellitus. The patient's Accu-Chek in clinic today is 142. The patient has been reminded that for optimal wound healing, her blood glucoses should remain below 150. Job ID: [id number]
[2018-08-02] MEDS ORDERED: Sodium Chloride 0.9% 15 ML NEB ONE (18:00)
== END 2018-08-02 09:24 | disposition home or self-care (01) ==
LOC: WCC 09:23
PROVIDERS: ATTEND Family Medicine
DX: T81.89XD Other complications of procedures, not elsewhere classified, subsequent encounter (principal); E11.9 Type 2 diabetes mellitus without complications; Z89.421 Acquired absence of other right toe(s)
CPT/HCPCS: 97602; A4218

== ENCOUNTER 2018-08-30 10:38 | Outpatient (CLI) | payer SELFPAY ==
--- NOTE | 2018-08-30 11:32 | PRG ---
DATE OF SERVICE: 08/30/2018 SUBJECTIVE: Ms. Gifty Quintana is a very pleasant 63-year-old, who [facility] evaluation of a wound of the right foot subsequent to amputation of the second toe on 04/24/[address] Arsenio Bray. At the time of the patient's last visit, the patient was asked to continue dressing changes of [place] on a daily basis after cleansing and irrigation. Ms. Quintana has no complaints today. She denies any fever or chills. OBJECTIVE: VITAL SIGNS: Temperature 97.5, pulse 91, respirations 17, blood pressure 152/68. Accu-Chek 220. EXTREMITIES: The wound of the right foot has healed completely. ASSESSMENT AND PLAN: 1. Wound of right foot subsequent to amputation of the second toe. As stated above, the wound has completely healed. The patient will be discharged from clinic today with followup on a p.r.n. basis. The patient states that she will discuss referral to a caser in for diabetic shoes with inserts with her primary care physician. 2. Diabetes mellitus. The patient's Accu-Chek in clinic today is 220. Job ID: [id number]
[2018-08-30] MEDS ORDERED: Sodium Chloride 0.9% 15 ML NEB ONE (17:42)
== END 2018-08-30 10:39 | disposition home or self-care (01) ==
LOC: WCC 10:38
PROVIDERS: ATTEND Family Medicine
DX: Z87.2 Personal history of diseases of the skin and subcutaneous tissue (principal); E11.9 Type 2 diabetes mellitus without complications; Z89.421 Acquired absence of other right toe(s)
CPT/HCPCS: A4218

== ENCOUNTER 2019-03-09 09:40 | Day surgery (SDC) | payer OTHER, SELFPAY ==
[2019-03-08 13:24] VITALS: BMI 29.9
[2019-03-09] MEDS ORDERED: Midazolam HCl 2 mg/2 ml Vial ONE (10:31)
[2019-03-09] MEDS ORDERED: Fentanyl 100 MCG/2 ML VIAL ONE ×3 (10:31→14:10)
[2019-03-09] MEDS ORDERED: Clindamycin/D5W 900 mg/50 ml Premix Bag ONE (10:44)
[2019-03-09] MEDS ORDERED: Promethazine HCl 25 MG/ML VIAL ONE (14:09)
--- NOTE | 2019-03-09 15:02 | OP ---
DATE OF PROCEDURE: 03/09/2019 OPERATION PERFORMED: Open reduction and internal fixation of left displaced patella fracture. PREOPERATIVE DIAGNOSIS: Chronic left patella fracture. POSTOPERATIVE DIAGNOSIS: Chronic left patella fracture. COMPLICATIONS: None. ESTIMATED BLOOD LOSS: 100 mL. [employer] MA[employer]: Rashad More PA-C. IMPLANTS: Two 4.0 partially-threaded cannulated screws with a Synthes cable were utilized as well as Mersilene tape. INDICATIONS: Ms. Quintana is a 63-year-old female, who fell and fractured her patella approximately 3 months ago. She has had multiple falls since then. She has an unstable knee. She has been indicated for open reduction and internal fixation of her patella after she presented on a delayed basis. Risks have been reviewed. She has elected to proceed with the operation. She is aware that she may have difficulty healing given that her fracture is chronic. DESCRIPTION OF PROCEDURE: Ms. Quintana was identified in the preoperative holding area. Her correct extremity was marked. She was carried to the operating room. She was positioned supine. General anesthesia was induced. A multidisciplinary time-out was performed. The left lower extremity was prepped and draped in sterile fashion. At this point, we began the procedure with anterior incision over the knee. We dissected down through the subcutaneous tissues to the fascia level. The patella fracture was identified, which was displaced. We irrigated the knee joint. We curetted the bony edges. We then drilled multiple holes in the bone for a bleeding bony surface. We then reduced the fracture with a reduction forceps. Once we had an adequate reduction, we placed 2 K-wires across the fracture. These were 4.0 cannulated screws. We checked position with intraoperative x-ray. We then overdrilled the K-wires. Next, we placed two 4.0 screws across the fracture over our K-wires. Finally, we passed a cable through our screws and over the top of the patella in a [id number] fashion for a tension band technique. Next, we passed a Mersilene tape around the circumference of the patella in a circular fashion, reinforcing our repair. We oversewed the retinaculum with a #2 Vicryl suture followed by superficial closure. A sterile dressing was applied. The patient was taken to the recovery room in good condition without complication at this point. Job ID: [id number]
--- NOTE | 2019-03-09 15:15 | RAD ---
LEFT KNEE 2 VIEWS: Date: 03/09/19 HISTORY: Open reduction and internal fixation left patella. FINDINGS/IMPRESSION: Two spot fluoroscopic intraoperative images of the left knee demonstrate interval reduction and inter nal fixation of the distracted fracture of the patella noted on 03/07/19. POS: [facility]
[2019-03-09] MEDS ORDERED: HYDROcodone/Acetaminophen 5/325 mg Tablet ONE (15:29)
== END 2019-03-09 16:56 | disposition home or self-care (01) ==
LOC: SDC 09:40
PROVIDERS: ATTEND Orthopaedic Surgery
PROC: 0QSF04Z Reposition Left Patella with Internal Fixation Device, Open Approach (ICD-10-PCS; principal; 2019-03-09)
PROC: 3E0T3BZ Introduction of Anesthetic Agent into Peripheral Nerves and Plexi, Percutaneous Approach (ICD-10-PCS; principal; 2019-03-09)
DX: S82.032A Displaced transverse fracture of left patella, initial encounter for closed fracture (principal); E11.40 Type 2 diabetes mellitus with diabetic neuropathy, unspecified; G89.18 Other acute postprocedural pain; R29.6 Repeated falls; W19.XXXA Unspecified fall, initial encounter; Z79.84 Long term (current) use of oral hypoglycemic drugs; Z79.899 Other long term (current) drug therapy; Z88.0 Allergy status to penicillin
CPT/HCPCS: 76000; 93005; 93010; C1713; C1769; J2250; J2550; J3010; J3490

== ENCOUNTER 2019-11-28 11:52 | Outpatient (CLI) | payer OTHER, SELFPAY ==
[2019-11-29 14:03] LABS: SARS-CoV-2 MS2 Positive; SARS-CoV-2 N Gene Negative; SARS-CoV-2 S Gene Negative; SARS-CoV-2 orf1ab Negative
== END 2019-11-28 11:53 | disposition home or self-care (01) ==
LOC: LABBT 11:52
PROVIDERS: ATTEND Orthopaedic Surgery Hand Surgery
DX: Z01.812 Encounter for preprocedural laboratory examination (principal); Z11.59 Encounter for screening for other viral diseases; S62.635A Displaced fracture of distal phalanx of left ring finger, initial encounter for closed fracture
CPT/HCPCS: 87635; U0003

== ENCOUNTER 2019-11-30 12:09 | Day surgery (SDC) | payer SELFPAY ==
[2019-11-29 12:58] VITALS: BMI 30.7
[~2019-11-30 12:09] MED LIST changes: +Dexamethasone 20 MG/5 ML VIAL ONE; +Lidocaine 1% PF 5 ML VIAL ONE; +Ondansetron PF 4 MG/2 ML Vial ONE; +PROPOFOL 200 MG/20 ML VIAL ONE; -Sodium Chloride 0.9% 15 ML NEB ONE
[2019-11-30] MEDS ORDERED: Thrombin 5000 UNITS/5 ML VIAL ONE (12:45)
[2019-11-30] MEDS ORDERED: Bupivacaine 0.25% HCL 30 ML VIAL ONE (12:45)
[2019-11-30] MEDS ORDERED: Mineral Oil Sterile 10ML 10 ML UDCUP ONE (12:45)
[2019-11-30] MEDS ORDERED: Bacitracin Zinc Ointment 30 gm TUBE ONE (12:45)
[2019-11-30] MEDS ORDERED: Sodium Chloride 0.9% 0 ML ONE (12:45)
[2019-11-30] MEDS ORDERED: Fentanyl 100 MCG/2 ML VIAL ONE (13:31)
[2019-11-30 13:55] LABS: #Eosinphils 0.3 thou/uL (0.0-0.7); #Monocytes 0.4 thou/uL (0.11-0.59); #Neutrophils 3.9 thou/uL (1.40-6.50); %Eosinophils 4.3 % (0.0-10.0); %Lymphocytes 30.8 % (21.0-51.0); Hemoglobin 11.5 g/dL (12.0-16.0); Mean Corpuscular HGB CONC 36.3 g/dL (32.0-36.0); Mean Corpuscular Hemoglobin 33.9 pg (27.0-31.0); Mean Corpuscular Volume 93.2 fL (78.0-98.0); Mean Platelet Volume 7.6 fL (7.4-10.4); Platelet Count 160 thou/uL (130-400); RBC Distribution Width 11.4 % (11.5-14.5); Red Blood Cell (RBC) Count 3.39 mill/uL (4.20-5.40); White Blood Cell (WBC) Count 6.6 thou/uL (4.8-10.8)
[2019-11-30] MEDS ORDERED: Ketorolac Tromethamine 30 MG/ML VIAL ONE (15:09)
[2019-11-30] MEDS ORDERED: Morphine 4 MG/ML VIAL ONE (15:32)
[2019-11-30] MEDS ORDERED: Ondansetron ODT 4 MG TAB ONE (16:16)
--- NOTE | 2019-12-01 09:04 | OP ---
DATE OF PROCEDURE: 11/30/2019 PREOPERATIVE DIAGNOSIS: Left ring finger open wound with open fracture of distal phalanx. PROCEDURES PERFORMED: 1. Debridement of open wound. 2. Debridement of material associated with open fracture. 3. Closure of wound with rotational flap, approximately 2.5 cm x 1 cm. 4. Excision of bone fragments. 5. Nailbed repair. COMPLICATIONS: None. TOURNIQUET TIME: 13 minutes. FINDINGS: Nailbed with crush and multiple subchondral 2 to 3 mm bone fragments and complex J-shaped nailbed laceration. DESCRIPTION OF PROCEDURE: After successful general endotracheal anesthesia, the limb was prepped and draped. We outlined the area in case skin graft could be done in the proximal antecubital fossa. We also gave the patient 10 mL of 0.5% Marcaine metacarpophalangeal joint level block. We then inspected the area, found that the low rotational flap that was there had some bleeding when we debrided it and that it could be used. We exsanguinated the limb, inflated tourniquet to 250 mmHg pressure. We then made eponychial fold incision 1 cm obliquely from the radial corner, dissected back to determine where the nailbed laceration was starting and it was a U-shaped laceration involving just 2 mm distal to the germinal matrix and connected in the radial corner. We debrided this. We used a curette, Dubois blade, tenotomy scissors, Adson, and 1500 mL of normal saline and bulb syringe pressure. It was excisional technique and we excised two 2 x 1 mm bone fragments and one 3 x 1 mm bone fragment from the subungual area. Once we had done this and removed the denuded fat, it was clear that we could reconstruct this without a graft, especially since the fact that the lacerated flap had shown a wide base and circulation prior to debridement. We removed and thinned the edges of the flap to allow for leaving enough tissue for suturing and for viability. We then repaired the nailbed after we excised all the bony fragments as described above using a combination of 5-0 and 6-0 chromic. Then, we closed the defect area where the bone had been excised by repairing the nailbed to the eponychial fold on the radial side. We then rotated the flap to support the distal edge of the nail and closed this with 5-0 nylon in interrupted simple pattern. We then were able to irrigate the area, deflate the tourniquet, had adequate circulation and we placed the patient in a bulky dressing after closing the oblique approach to the base of the nail and eponychial fold using 5-0 nylon in interrupted simple pattern. The patient had a bulky dressing applied along with a short-arm splint, left the operating room without evidence of anesthetic or operative complication. Job ID: [id number]
== END 2019-11-30 17:30 | disposition home or self-care (01) ==
LOC: SDC 12:09
PROVIDERS: ATTEND Orthopaedic Surgery Hand Surgery
PROC: 0HQQXZZ Repair Finger Nail, External Approach (ICD-10-PCS; principal; 2019-11-30)
PROC: 0PBV0ZZ Excision of Left Finger Phalanx, Open Approach (ICD-10-PCS; principal; 2019-11-30)
DX: S62.635A Displaced fracture of distal phalanx of left ring finger, initial encounter for closed fracture (principal); E11.40 Type 2 diabetes mellitus with diabetic neuropathy, unspecified; Z79.82 Long term (current) use of aspirin; Z79.899 Other long term (current) drug therapy
CPT/HCPCS: 85025; 93005; 93010; J0690; J1100; J1885; J2270; J2405; J2704; J3010; J3490; Q0162; S0020

== ENCOUNTER 2021-05-31 19:07 | Inpatient (IN) | payer MEDICARE ==
[2021-05-31 20:30] VITALS: BMI 36.1
[2021-05-31] MEDS ORDERED: Dextrose 50% Abboject 50 ML SYRINGE SLOW IVP PRN (20:47)
[2021-05-31] MEDS ORDERED: Dextrose 5% in Water 1,000 ML IV PRN (20:47)
[2021-05-31] MEDS ORDERED: HumaLOG 300 UNITS/3 ML VIAL SC PRN (20:47)
[2021-05-31 21:53] LABS: Anion Gap 13 mmol/L (10-20); BUN (Urea Nitrogen) 17 mg/dL (9.8-20.1); Calc. Creatinine Clearance 76 mL/min (70-130); Calcium 8.5 mg/dL (7.8-10.44); Carbon Dioxide 24 mmol/L (23-31); Chloride 106 mmol/L (98-107); Glucose 173 mg/dL (80-115); Potassium 3.3 mmol/L (3.5-5.1); Sodium 140 mmol/L (136-145)
[2021-05-31] MEDS: Acetaminophen 325 MG TAB PO PRN (22:23)
[2021-05-31] MEDS: Heparin 5,000 UNITS/ML VIAL SC SCH (22:25)
[2021-05-31] MEDS: hydrALAZINE 20 MG/ML VIAL SLOW IVP PRN (23:20)
[2021-05-31] MEDS ORDERED: ALPRAZolam 0.5 MG TAB PO SCH (23:45)
[2021-06-01] MEDS: Ondansetron PF 4 MG/2 ML Vial IVP PRN ×3 (00:16→13:28)
[2021-06-01] MEDS: Acetaminophen 325 MG TAB PO PRN (04:27)
[2021-06-01 05:12] LABS: #Eosinphils 0.3 thou/uL (0.0-0.7); #Lymphocytes 1.1 thou/uL (1.20-3.40); #Monocytes 0.3 thou/uL (0.11-0.59); #Neutrophils 4.5 thou/uL (1.40-6.50); %Basophils 0.7 % (0.0-1.0); %Eosinophils 5.2 % (0.0-10.0); %Lymphocytes 16.9 % (21.0-51.0); %Monocytes 5.4 % (0.0-10.0); %Neutrophils 71.8 % (42.0-75.0); Hemoglobin 8.8 g/dL (12.0-16.0); Mean Corpuscular HGB CONC 34.9 g/dL (32.0-36.0); Mean Corpuscular Hemoglobin 32.3 pg (27.0-31.0); Mean Corpuscular Volume 92.6 fL (78.0-98.0); Mean Platelet Volume 6.9 fL (7.4-10.4); Platelet Count 199 thou/uL (130-400); RBC Distribution Width 13.3 % (11.5-14.5); Red Blood Cell (RBC) Count 2.71 mill/uL (4.20-5.40); White Blood Cell (WBC) Count 6.2 thou/uL (4.8-10.8)
[2021-06-01 05:36] LABS: Anion Gap 17 mmol/L (10-20); BUN (Urea Nitrogen) 16 mg/dL (9.8-20.1); Calc. Creatinine Clearance 69 mL/min (70-130); Calcium 8.6 mg/dL (7.8-10.44); Carbon Dioxide 22 mmol/L (23-31); Chloride 104 mmol/L (98-107); Glucose 357 mg/dL (80-115); Potassium 3.5 mmol/L (3.5-5.1); Sodium 139 mmol/L (136-145)
[2021-06-01 05:47] LABS: Bilirubin Negative (Negative); Blood, Urine 2+ (Negative); Clarity Extra Turbid (Clear); Glucose, Urine (Dipstick) Greater than 1000 mg/dL (Negative); Ketone, Urine 10 mg/dL (Negative); Leukocyte 500 Leu/uL (Negative); Nitrite Negative (Negative); Protein, Urine (Dipstick) 200 mg/dL (Neg-Trace); RBC/HPF 21-50 HPF (0-3); Specific Gravity, Urine 1.015 (1.002-1.036); Urobilinogen Normal mg/dL (Less than 2); WBC/HPF Greater than 50 HPF (0-3); pH, Urine 6.5 (5.0-9.0)
[2021-06-01 05:49] LABS: Bacteria/HPF Rare-Few HPF (None Seen)
[2021-06-01 05:50] LABS: Urine Culture Reflex No No
[2021-06-01] MEDS ORDERED: HYDROcodone/Acetaminophen 5/325 mg Tablet PO SCH (06:15)
[2021-06-01] MEDS: Furosemide 40 MG/4 ML VIAL SLOW IVP SCH ×2 (06:31→15:15)
[2021-06-01] MEDS: HumaLOG 300 UNITS/3 ML VIAL SC PRN ×3 (06:35→17:10)
[2021-06-01] MEDS: hydrALAZINE 20 MG/ML VIAL SLOW IVP PRN ×3 (07:28→23:35)
[2021-06-01] MEDS ORDERED: Glimepiride 2 MG TAB PO SCH (08:00)
[2021-06-01] MEDS: Aspirin Chewable 81 MG TAB PO SCH (09:14)
[2021-06-01] MEDS: cefTRIAXone\\ROCEPHIN 2 GM in Sodium Chloride 0.9% 100 ML IVPB SCH (09:14)
[2021-06-01] MEDS: Carvedilol 3.125 MG TAB PO SCH ×2 (09:14→17:21)
[2021-06-01] MEDS: Heparin 5,000 UNITS/ML VIAL SC SCH ×3 (09:14→21:18)
[2021-06-01] MEDS: Gabapentin 300 MG CAP PO SCH ×2 (09:14→21:18)
[2021-06-01] MEDS: Amlodipine 10 MG TAB PO SCH (09:14)
[2021-06-01 09:32] LABS: Hemoglobin A1c 8.9 % (4.0-6.0)
[2021-06-01 09:44] LABS: Iron 51 ug/dL (50-170); Iron Binding Capacity, Total 216 mcg/dL (265-497)
[2021-06-01 11:15] LABS: Ferritin 137.52 ng/mL (10-291)
[2021-06-01 12:48] LABS: Amphetamine Not Detected (NotDetected); Barbiturates Screen Not Detected (NotDetected); Benzodiazepine Screen Detected (NotDetected); Cocaine Metabolite Screen Not Detected (NotDetected); Methadone Not Detected (NotDetected); Methamphetamine Not Detected (NotDetected); Opiate Screen Not Detected (NotDetected); Oxycodone Screen Not Detected (NotDetected); Phencyclidine (PCP) Not Detected (NotDetected); THC/Cannabinoid Screen Detected (NotDetected); Tricyclic Screen Not Detected (NotDetected)
[2021-06-01 12:55] LABS: SARS-CoV-2 PCR by NAA Not Detected (NotDetected)
[2021-06-01] MEDS: metFORMIN 500 MG TAB PO SCH (17:21)
[2021-06-01] MEDS ORDERED: ALPRAZolam 0.5 MG TAB PO SCH (23:30)
[2021-06-02 05:57] LABS: #Eosinphils 0.1 thou/uL (0.0-0.7); #Lymphocytes 2.2 thou/uL (1.20-3.40); #Monocytes 0.6 thou/uL (0.11-0.59); #Neutrophils 6.2 thou/uL (1.40-6.50); %Basophils 0.1 % (0.0-1.0); %Eosinophils 0.9 % (0.0-10.0); %Lymphocytes 24.4 % (21.0-51.0); %Monocytes 6.9 % (0.0-10.0); %Neutrophils 67.7 % (42.0-75.0); Hemoglobin 9.4 g/dL (12.0-16.0); Mean Corpuscular HGB CONC 34.2 g/dL (32.0-36.0); Mean Corpuscular Hemoglobin 31.9 pg (27.0-31.0); Mean Corpuscular Volume 93.4 fL (78.0-98.0); Mean Platelet Volume 6.5 fL (7.4-10.4); Platelet Count 305 thou/uL (130-400); RBC Distribution Width 13.6 % (11.5-14.5); Red Blood Cell (RBC) Count 2.95 mill/uL (4.20-5.40); White Blood Cell (WBC) Count 9.1 thou/uL (4.8-10.8)
[2021-06-02 06:17] LABS: Anion Gap 17 mmol/L (10-20); BUN (Urea Nitrogen) 17 mg/dL (9.8-20.1); Calc. Creatinine Clearance 57 mL/min (70-130); Carbon Dioxide 22 mmol/L (23-31); Chloride 104 mmol/L (98-107); Glucose 172 mg/dL (80-115); Magnesium 1.9 mg/dL (1.6-2.6); Sodium 140 mmol/L (136-145)
[2021-06-02] MEDS: Furosemide 40 MG/4 ML VIAL SLOW IVP SCH (06:20)
[2021-06-02] MEDS: cefTRIAXone\\ROCEPHIN 2 GM in Sodium Chloride 0.9% 100 ML IVPB SCH (09:44)
[2021-06-02] MEDS: metFORMIN 500 MG TAB PO SCH (09:45)
[2021-06-02] MEDS: Amlodipine 10 MG TAB PO SCH (09:45)
[2021-06-02] MEDS: Aspirin Chewable 81 MG TAB PO SCH (09:45)
[2021-06-02] MEDS: Carvedilol 3.125 MG TAB PO SCH ×2 (09:45→16:25)
[2021-06-02] MEDS: glipiZIDE 5 MG TAB PO SCH (09:45)
[2021-06-02] MEDS: Gabapentin 300 MG CAP PO SCH ×2 (09:45→21:31)
[2021-06-02] MEDS: Heparin 5,000 UNITS/ML VIAL SC SCH ×3 (09:45→21:32)
[2021-06-02] MEDS ORDERED: Potassium Chloride 20 MEQ TAB PO SCH (10:15)
[2021-06-02] MEDS: HumaLOG 300 UNITS/3 ML VIAL SC PRN (13:03)
[2021-06-02] MEDS ORDERED: Furosemide 20 MG TAB PO SCH (14:00)
[2021-06-02] MEDS ORDERED: Melatonin 3 MG TAB PO SCH (20:40)
[2021-06-02] MEDS ORDERED: Lantus 1000 UNITS/10 ML VIAL SC SCH (21:00)
[2021-06-03 05:02] LABS: #Eosinphils 0.3 thou/uL (0.0-0.7); #Monocytes 0.8 thou/uL (0.11-0.59); #Neutrophils 5.4 thou/uL (1.40-6.50); %Basophils 0.2 % (0.0-1.0); %Eosinophils 3.9 % (0.0-10.0); %Lymphocytes 23.6 % (21.0-51.0); %Monocytes 9.2 % (0.0-10.0); Hemoglobin 8.5 g/dL (12.0-16.0); Mean Corpuscular HGB CONC 34.5 g/dL (32.0-36.0); Mean Corpuscular Volume 92.9 fL (78.0-98.0); Mean Platelet Volume 6.5 fL (7.4-10.4); Platelet Count 249 thou/uL (130-400); RBC Distribution Width 13.7 % (11.5-14.5); Red Blood Cell (RBC) Count 2.66 mill/uL (4.20-5.40); White Blood Cell (WBC) Count 8.5 thou/uL (4.8-10.8)
[2021-06-03 05:25] LABS: Anion Gap 14 mmol/L (10-20); BUN (Urea Nitrogen) 25 mg/dL (9.8-20.1); Calc. Creatinine Clearance 45 mL/min (70-130); Calcium 8.6 mg/dL (7.8-10.44); Carbon Dioxide 25 mmol/L (23-31); Chloride 102 mmol/L (98-107); Glucose 194 mg/dL (80-115); Potassium 3.4 mmol/L (3.5-5.1); Sodium 138 mmol/L (136-145)
[2021-06-03] MEDS: HumaLOG 300 UNITS/3 ML VIAL SC PRN (06:19)
[2021-06-03] MEDS ORDERED: traMADol HCl 50 MG TAB PO SCH (08:00)
[2021-06-03] MEDS ORDERED: Furosemide 20 MG TAB PO SCH (09:00)
[2021-06-03] MEDS: Aspirin Chewable 81 MG TAB PO SCH (09:23)
[2021-06-03] MEDS: Gabapentin 300 MG CAP PO SCH (09:23)
[2021-06-03] MEDS: glipiZIDE 5 MG TAB PO SCH (09:24)
[2021-06-03] MEDS: Carvedilol 3.125 MG TAB PO SCH (09:24)
[2021-06-03] MEDS: Amlodipine 10 MG TAB PO SCH (09:24)
[2021-06-03] MEDS: Heparin 5,000 UNITS/ML VIAL SC SCH (09:25)
[2021-06-03 10:35] VITALS: BP 141/68; TEMP 98.4
== END 2021-06-03 12:00 | disposition home or self-care (01) | DRG 291 ==
LOC: 2NO 20:04
PROVIDERS: ADMIT Family Medicine; ATTEND Hospitalist
DX: I11.0 Hypertensive heart disease with heart failure (principal); I50.31 Acute diastolic (congestive) heart failure; J96.01 Acute respiratory failure with hypoxia; N30.00 Acute cystitis without hematuria; N17.9 Acute kidney failure, unspecified; Z20.822 Contact with and (suspected) exposure to COVID-19; E66.9 Obesity, unspecified; E11.42 Type 2 diabetes mellitus with diabetic polyneuropathy; D64.9 Anemia, unspecified; G89.4 Chronic pain syndrome; Z79.82 Long term (current) use of aspirin; Z79.4 Long term (current) use of insulin; Z79.899 Other long term (current) drug therapy; Z87.442 Personal history of urinary calculi; Z90.49 Acquired absence of other specified parts of digestive tract; Z90.710 Acquired absence of both cervix and uterus; Z90.89 Acquired absence of other organs; Z89.022 Acquired absence of left finger(s); Z98.890 Other specified postprocedural states; Z68.34 Body mass index [BMI] 34.0-34.9, adult
CPT/HCPCS: 36415; 36416; 80048; 80306; 81001; 82607; 82728; 82746; 83036; 83540; 83550; 83735; 85025; 87086; 93306; 94640; J0360; J0696; J1644; J1815; J1940; J2405; J3490; J7620; U0003; U0005

== ENCOUNTER 2021-11-20 11:38 | Inpatient (IN) | payer MEDICARE ==
[2021-11-20] MEDS ORDERED: Ketorolac Tromethamine 30 MG/ML VIAL ONE (12:14)
[2021-11-20 12:40] LABS: #Eosinphils 0.1 thou/uL (0.0-0.7); #Lymphocytes 0.6 thou/uL (1.20-3.40); #Monocytes 0.4 thou/uL (0.11-0.59); #Neutrophils 7.5 thou/uL (1.40-6.50); %Basophils 0.3 % (0.0-1.0); %Eosinophils 1.7 % (0.0-10.0); %Lymphocytes 6.4 % (21.0-51.0); %Monocytes 4.3 % (0.0-10.0); %Neutrophils 87.3 % (42.0-75.0); Hemoglobin 8.7 g/dL (12.0-16.0); Mean Corpuscular HGB CONC 33.1 g/dL (32.0-36.0); Mean Corpuscular Hemoglobin 30.9 pg (27.0-31.0); Mean Corpuscular Volume 93.3 fL (78.0-98.0); Platelet Count 336 thou/uL (130-400); RBC Distribution Width 13.8 % (11.5-14.5); Red Blood Cell (RBC) Count 2.82 mill/uL (4.20-5.40); White Blood Cell (WBC) Count 8.6 thou/uL (4.8-10.8)
[2021-11-20 13:13] LABS: ALT (SGPT) 12 U/L (8-55); AST (SGOT) 10 U/L (5-34); Albumin 3.4 g/dL (3.4-4.8); Alkaline Phosphatase 689 U/L (40-110); Anion Gap 17 mmol/L (10-20); BUN (Urea Nitrogen) 45 mg/dL (9.8-20.1); Bilirubin, Total 0.6 mg/dL (0.2-1.2); Calc. Creatinine Clearance 0 mL/min (70-130); Calcium 8.9 mg/dL (7.8-10.44); Carbon Dioxide 23 mmol/L (23-31); Chloride 90 mmol/L (98-107); Estimated GFR 25; Globulin 3.6 g/dL (2.4-3.5); Glucose 468 mg/dL (80-115); Lipase 20 U/L (8-78); Potassium 5.1 mmol/L (3.5-5.1); Sodium 125 mmol/L (136-145)
[2021-11-20 13:44] LABS: Bilirubin Negative (Negative); Blood, Urine 3+ (Negative); Clarity Extra Turbid (Clear); Glucose, Urine (Dipstick) Greater than 1000 mg/dL (Negative); Ketone, Urine Negative (Negative); Leukocyte 500 Leu/uL (Negative); Nitrite Negative (Negative); Protein, Urine (Dipstick) 100 mg/dL (Neg-Trace); Specific Gravity, Urine 1.011 (1.002-1.036); Squamous Epithelial 0-3 HPF (0-3); Urobilinogen Normal mg/dL (Less than 2); pH, Urine 6.5 (5.0-9.0)
[2021-11-20 13:53] LABS: RBC/HPF Greater than 50 HPF (0-3); WBC/HPF Greater than 50 HPF (0-3)
[2021-11-20 13:54] LABS: Bacteria/HPF 4+ HPF (None Seen)
[2021-11-20] MEDS ORDERED: Cefepime 2 GM VIAL ONE (14:41)
[2021-11-20] MEDS ORDERED: Ondansetron ODT 4 MG TAB PO PRN (15:46)
[2021-11-20] MEDS ORDERED: Acetaminophen 650 MG Suppository PR PRN (15:46)
[2021-11-20] MEDS ORDERED: Ondansetron PF 4 MG/2 ML Vial IVP PRN (15:46)
[2021-11-20] MEDS ORDERED: Furosemide 40 MG/4 ML VIAL SLOW IVP SCH (16:30)
[2021-11-20] MEDS ORDERED: Morphine 4 MG/ML VIAL SLOW IVP PRN ×2 (16:34→16:35)
[2021-11-20] MEDS ORDERED: Dextrose 5% in Water 1,000 ML IV PRN (16:35)
[2021-11-20] MEDS ORDERED: Dextrose 50% Abboject 50 ML SYRINGE SLOW IVP PRN (16:35)
[2021-11-20 16:58] LABS: Hemoglobin A1c 11.3 % (4.0-6.0)
[2021-11-20 17:14] LABS: Iron 18 ug/dL (50-170); Iron Binding Capacity, Total 256 mcg/dL (265-497); Sodium 127 mmol/L (136-145)
[2021-11-20 20:51] LABS: SARS-CoV-2 NAA Rapid Test Not Detected (NotDetected)
[2021-11-20] MEDS ORDERED: Insulin Glargine 30 UNITS/0.3 ML VIAL SC SCH (21:00)
[2021-11-20 22:10] VITALS: BMI 36.8
[2021-11-20 22:40] LABS: Glucose POC Confirmation 705 mg/dl (80-115)
[2021-11-20] MEDS: HumaLOG 300 UNITS/3 ML VIAL SC PRN (22:46)
[2021-11-20] MEDS ORDERED: Gabapentin 300 MG CAP PO SCH (23:30)
[2021-11-20] MEDS ORDERED: HumaLOG 300 UNITS/3 ML VIAL SC SCH (23:45)
[2021-11-20 23:50] LABS: Potassium, Urine 17.5 mmol/L
[2021-11-20 23:55] LABS: Sodium 127 mmol/L (136-145)
[2021-11-21 01:29] LABS: Glucose 599 mg/dL (80-115)
[2021-11-21] MEDS ORDERED: HumaLOG 300 UNITS/3 ML VIAL SC SCH (02:00)
[2021-11-21 04:09] LABS: #Basophils 0.1 thou/uL (0.0-0.2); #Eosinphils 0.1 thou/uL (0.0-0.7); #Lymphocytes 0.8 thou/uL (1.20-3.40); #Monocytes 0.8 thou/uL (0.11-0.59); #Neutrophils 10.9 thou/uL (1.40-6.50); %Eosinophils 0.4 % (0.0-10.0); %Lymphocytes 6.5 % (21.0-51.0); %Monocytes 6.2 % (0.0-10.0); %Neutrophils 85.9 % (42.0-75.0); Hemoglobin 7.9 g/dL (12.0-16.0); Mean Corpuscular HGB CONC 33.6 g/dL (32.0-36.0); Mean Corpuscular Hemoglobin 31.7 pg (27.0-31.0); Mean Corpuscular Volume 94.2 fL (78.0-98.0); Mean Platelet Volume 7.2 fL (7.4-10.4); Platelet Count 310 thou/uL (130-400); RBC Distribution Width 13.8 % (11.5-14.5); White Blood Cell (WBC) Count 12.7 thou/uL (4.8-10.8)
[2021-11-21 04:42] LABS: Anion Gap 16 mmol/L (10-20); BUN (Urea Nitrogen) 43 mg/dL (9.8-20.1); Calc. Creatinine Clearance 47 mL/min (70-130); Calcium 8.7 mg/dL (7.8-10.44); Carbon Dioxide 21 mmol/L (23-31); Chloride 98 mmol/L (98-107); Estimated GFR 29; Glucose 453 mg/dL (80-115); Potassium 4.8 mmol/L (3.5-5.1); Sodium 130 mmol/L (136-145)
[2021-11-21] MEDS: HumaLOG 300 UNITS/3 ML VIAL SC PRN ×3 (05:27→20:54)
[2021-11-21] MEDS ORDERED: Furosemide 20 MG TAB PO SCH (09:00)
[2021-11-21] MEDS: Gabapentin 300 MG CAP PO SCH ×2 (09:33→20:53)
[2021-11-21] MEDS: Carvedilol 3.125 MG TAB PO SCH ×2 (09:33→15:55)
[2021-11-21] MEDS: Escitalopram Oxalate 10 mg Tablet PO SCH (09:35)
[2021-11-21] MEDS: Insulin Glargine 30 UNITS/0.3 ML VIAL SC SCH ×2 (09:39→20:54)
[2021-11-21 11:40] LABS: Sodium 135 mmol/L (136-145)
[2021-11-21] MEDS: Sodium Chloride 0.9% 1,000 ML IV SCH ×2 (12:07→20:55)
[2021-11-21] MEDS ORDERED: Cefepime 1 GM in Sodium Chloride 0.9% 100 ML IVPB SCH (15:00)
[2021-11-21] MEDS ORDERED: Docusate 100 MG CAP PO PRN (15:09)
[2021-11-21 16:56] LABS: Sodium 134 mmol/L (136-145)
[2021-11-21 22:45] LABS: Sodium 134 mmol/L (136-145)
[2021-11-22 04:11] LABS: #Eosinphils 0.3 thou/uL (0.0-0.7); #Lymphocytes 1.9 thou/uL (1.20-3.40); #Monocytes 0.9 thou/uL (0.11-0.59); #Neutrophils 8.5 thou/uL (1.40-6.50); %Basophils 0.2 % (0.0-1.0); %Eosinophils 2.9 % (0.0-10.0); %Lymphocytes 16.4 % (21.0-51.0); %Monocytes 7.7 % (0.0-10.0); %Neutrophils 72.8 % (42.0-75.0); Hemoglobin 7.9 g/dL (12.0-16.0); Mean Corpuscular HGB CONC 32.5 g/dL (32.0-36.0); Mean Corpuscular Hemoglobin 31.3 pg (27.0-31.0); Mean Corpuscular Volume 96.2 fL (78.0-98.0); Mean Platelet Volume 6.7 fL (7.4-10.4); Platelet Count 287 thou/uL (130-400); Red Blood Cell (RBC) Count 2.51 mill/uL (4.20-5.40); White Blood Cell (WBC) Count 11.6 thou/uL (4.8-10.8)
[2021-11-22 04:37] LABS: Anion Gap 12 mmol/L (10-20); BUN (Urea Nitrogen) 40 mg/dL (9.8-20.1); Calc. Creatinine Clearance 61 mL/min (70-130); Calcium 8.4 mg/dL (7.8-10.44); Carbon Dioxide 23 mmol/L (23-31); Chloride 104 mmol/L (98-107); Estimated GFR 40; Glucose 186 mg/dL (80-115); Potassium 4.1 mmol/L (3.5-5.1); Sodium 135 mmol/L (136-145)
[2021-11-22] MEDS: HumaLOG 300 UNITS/3 ML VIAL SC PRN ×3 (06:19→17:34)
[2021-11-22] MEDS: Carvedilol 3.125 MG TAB PO SCH (10:25)
[2021-11-22] MEDS: Gabapentin 300 MG CAP PO SCH ×2 (10:26→21:03)
[2021-11-22] MEDS: Escitalopram Oxalate 10 mg Tablet PO SCH (10:26)
[2021-11-22] MEDS: Insulin Glargine 30 UNITS/0.3 ML VIAL SC SCH ×2 (10:26→21:05)
[2021-11-22] MEDS ORDERED: Cefepime 1 GM in Sodium Chloride 0.9% 100 ML IVPB SCH (11:15)
[2021-11-22] MEDS: Sodium Chloride 0.9% 1,000 ML IV SCH (13:38)
[2021-11-22] MEDS: Carvedilol 6.25 MG TAB PO SCH (17:34)
[2021-11-22] MEDS: Acetaminophen 325 MG TAB PO PRN (21:04)
[2021-11-22] MEDS: Cefepime 1 GM in Sodium Chloride 0.9% 100 ML IVPB SCH (21:05)
[2021-11-22] MEDS ORDERED: HUMULIN R 100 UNITS in Sodium Chloride 0.9% 100 ML IVPB SCH (23:00)
[2021-11-23] MEDS: Sodium Chloride 0.9% 1,000 ML IV SCH ×2 (01:18→05:18)
[2021-11-23 04:37] LABS: #Eosinphils 0.3 thou/uL (0.0-0.7); #Lymphocytes 1.8 thou/uL (1.20-3.40); #Monocytes 0.9 thou/uL (0.11-0.59); #Neutrophils 5.6 thou/uL (1.40-6.50); %Eosinophils 3.7 % (0.0-10.0); %Lymphocytes 20.9 % (21.0-51.0); %Monocytes 10.3 % (0.0-10.0); %Neutrophils 65.1 % (42.0-75.0); Hemoglobin 7.6 g/dL (12.0-16.0); Mean Corpuscular HGB CONC 32.6 g/dL (32.0-36.0); Mean Corpuscular Hemoglobin 31.3 pg (27.0-31.0); Mean Platelet Volume 6.6 fL (7.4-10.4); Platelet Count 248 thou/uL (130-400); RBC Distribution Width 13.5 % (11.5-14.5); Red Blood Cell (RBC) Count 2.44 mill/uL (4.20-5.40); White Blood Cell (WBC) Count 8.5 thou/uL (4.8-10.8)
[2021-11-23] MEDS ORDERED: hydrALAZINE 20 MG/ML VIAL SLOW IVP PRN (04:54)
[2021-11-23 05:10] LABS: Anion Gap 13 mmol/L (10-20); BUN (Urea Nitrogen) 32 mg/dL (9.8-20.1); Calc. Creatinine Clearance 74 mL/min (70-130); Carbon Dioxide 22 mmol/L (23-31); Chloride 104 mmol/L (98-107); Estimated GFR 50; Glucose 170 mg/dL (80-115); Potassium 4.3 mmol/L (3.5-5.1); Sodium 135 mmol/L (136-145)
[2021-11-23] MEDS ORDERED: NIFEdipine XL 30 MG TAB PO SCH ×2 (09:00)
[2021-11-23] MEDS ORDERED: Carvedilol 25 MG TAB PO SCH ×2 (09:30→17:00)
[2021-11-23] MEDS: Cefepime 1 GM in Sodium Chloride 0.9% 100 ML IVPB SCH (09:37)
[2021-11-23] MEDS: Escitalopram Oxalate 10 mg Tablet PO SCH (09:38)
[2021-11-23] MEDS: Gabapentin 300 MG CAP PO SCH (09:39)
[2021-11-23] MEDS: Insulin Glargine 30 UNITS/0.3 ML VIAL SC SCH (09:41)
[2021-11-23] MEDS: Carvedilol 6.25 MG TAB PO SCH (10:39)
[2021-11-23 12:23] VITALS: TEMP 97.8
[2021-11-23] MEDS: Acetaminophen 325 MG TAB PO PRN (12:38)
[2021-11-23 17:06] VITALS: BP 144/80
== END 2021-11-23 17:38 | disposition home or self-care (01) | DRG 872 ==
LOC: ERS 11:38 → ERHOLD 15:46 → 2NO 21:56
PROVIDERS: ADMIT Family Medicine; ATTEND Family Medicine
DX: A41.51 Sepsis due to Escherichia coli [E. coli] (principal); N30.00 Acute cystitis without hematuria; I31.3 Pericardial effusion (noninflammatory); N17.9 Acute kidney failure, unspecified; E87.1 Hypo-osmolality and hyponatremia; J90 Pleural effusion, not elsewhere classified; Z16.11 Resistance to penicillins; A41.59 Other Gram-negative sepsis; Z20.822 Contact with and (suspected) exposure to COVID-19; F41.9 Anxiety disorder, unspecified; F32.A Depression, unspecified; E87.70 Fluid overload, unspecified; E11.65 Type 2 diabetes mellitus with hyperglycemia; E11.42 Type 2 diabetes mellitus with diabetic polyneuropathy; N20.0 Calculus of kidney; Z96.652 Presence of left artificial knee joint; N18.9 Chronic kidney disease, unspecified; E11.22 Type 2 diabetes mellitus with diabetic chronic kidney disease; I12.9 Hypertensive chronic kidney disease with stage 1 through stage 4 chronic kidney disease, or unspecified chronic kidney disease; E86.0 Dehydration; D63.1 Anemia in chronic kidney disease; Z90.49 Acquired absence of other specified parts of digestive tract; Z79.4 Long term (current) use of insulin; Z79.84 Long term (current) use of oral hypoglycemic drugs; Z79.899 Other long term (current) drug therapy; Z90.710 Acquired absence of both cervix and uterus; Z89.421 Acquired absence of other right toe(s); Z90.09 Acquired absence of other part of head and neck; Z91.19 Patient's noncompliance with other medical treatment and regimen
CPT/HCPCS: 36415; 36416; 71046; 74176; 80048; 80053; 80061; 81003; 81015; 82436; 82607; 82746; 83036; 83540; 83550; 83605; 83690; 83880; 83930; 83935; 84133; 84295; 84300; 84443; 84484; 84540; 84560; 85025; 87040; 87077; 87086; 87186; 93005; 93306; 96365; 96366; 96375; J0360; J0692; J1815; J1885; J3490; J7050; U0002

== ENCOUNTER 2022-10-28 09:50 | Day surgery (SDC) | payer OTHER ==
[2022-10-24 15:26] VITALS: BMI 35.2
[2022-10-28] MEDS ORDERED: Sodium Chloride 0.9% 100 ML ONE (12:50)
[2022-10-28] MEDS ORDERED: CEFAZOLIN 2 GM VIAL ONE (12:50)
[2022-10-28] MEDS ORDERED: fentaNYL 50 mcg/mL 1 mL Vial ONE ×2 (13:00→13:10)
[2022-10-28] MEDS ORDERED: PROPOFOL 200 MG/20 ML VIAL ONE (13:06)
[2022-10-28] MEDS ORDERED: Lidocaine 1% PF 5 ML VIAL ONE (13:06)
[2022-10-28] MEDS ORDERED: Ondansetron PF 4 MG/2 ML Vial ONE (13:06)
[2022-10-28] MEDS ORDERED: Ondansetron HCl/PF 4 MG/2 ML Vial IVP PRN (13:14)
[2022-10-28] MEDS ORDERED: Promethazine HCl 25 MG/ML VIAL IM PRN (13:14)
[2022-10-28] MEDS ORDERED: HYDROmorphone 2 MG/ML VIAL SLOW IVP PRN (13:14)
[2022-10-28] MEDS ORDERED: Bupivacaine HCl 0.5%/Epinephrine 1:200,000/PF 30 ml Vial ONE (13:17)
[2022-10-28] MEDS ORDERED: hydrALAZINE 20 MG/ML VIAL ONE ×2 (14:04→14:17)
[2022-10-28] MEDS ORDERED: Labetalol HCl 100 MG/20 ML VIAL ONE (14:17)
== END 2022-10-28 15:28 | disposition home or self-care (01) ==
LOC: SDC 09:50
PROVIDERS: ATTEND Orthopaedic Surgery
PROC: 0SPD0JZ Removal of Synthetic Substitute from Left Knee Joint, Open Approach (ICD-10-PCS; principal; 2022-10-28)
DX: T85.848A Pain due to other internal prosthetic devices, implants and grafts, initial encounter (principal); Y81.2 Prosthetic and other implants, materials and accessory general- and plastic-surgery devices associated with adverse incidents; Z90.49 Acquired absence of other specified parts of digestive tract; Z90.89 Acquired absence of other organs; Z90.710 Acquired absence of both cervix and uterus
CPT/HCPCS: 20680; 73560; 82962; J0360; J3010; 36416; J2405; J2704; J3490

== ENCOUNTER 2023-03-26 08:25 | Inpatient (IN) | payer OTHER ==
[2023-03-26] MEDS ORDERED: Ondansetron ODT 4 MG TAB SL PRN (17:00)
[2023-03-26] MEDS ORDERED: Acetaminophen 325 MG TAB PO PRN ×2 (17:00→18:31)
[2023-03-26] MEDS ORDERED: Ondansetron PF 4 MG/2 ML Vial IVP PRN ×2 (17:00→18:31)
[2023-03-26] MEDS ORDERED: HumaLOG 300 UNITS/3 ML VIAL SC PRN ×2 (18:31)
[2023-03-26] MEDS ORDERED: Acetaminophen 650 MG Suppository PR PRN (18:31)
[2023-03-26] MEDS ORDERED: Dextrose 50% Abboject 50 ML SYRINGE SLOW IVP PRN (18:31)
[2023-03-26] MEDS ORDERED: Glucagon 1 MG/ML KIT IM PRN (18:31)
[2023-03-26] MEDS ORDERED: Dextrose 5% in Water 1,000 ML IV PRN (18:31)
[2023-03-26] MEDS ORDERED: Ondansetron ODT 4 MG TAB PO PRN (18:31)
[2023-03-26] MEDS ORDERED: Heparin 25,000 units/D5W 500 ML IVPB SCH (18:45)
[2023-03-26] MEDS ORDERED: Furosemide 40 MG/4 ML VIAL SLOW IVP SCH (18:45)
[2023-03-26] MEDS ORDERED: Heparin 10,000 UNITS/ 10 ML VIAL SLOW IVP SCH (18:45)
[2023-03-26] MEDS ORDERED: Ipratropium/Albuterol 3 ML NEB NEB PRN (18:48)
[2023-03-26 19:10] LABS: Hematocrit 23.3 % (36.0-47.0); Platelet Count 129 10x3/uL (130-400)
[2023-03-26 19:41] LABS: Magnesium 2.6 mg/dL (1.6-2.6)
[2023-03-26] MEDS ORDERED: Sodium Bicarb 50 MEQ/50 ML Abboject 8.4% SYRINGE IVP SCH (20:00)
[2023-03-26 20:14] LABS: Hemoglobin A1c 6.3 % (4.0-6.0)
[2023-03-26] MEDS: Carvedilol 6.25 MG TAB PO SCH (20:56)
[2023-03-26] MEDS: Gabapentin 300 MG CAP PO SCH (20:57)
[2023-03-26] MEDS: Famotidine 20 MG TAB PO SCH (20:57)
[2023-03-26 21:28] LABS: Anion Gap 14 mmol/L (10-20); BUN (Urea Nitrogen) 27 mg/dL (9.8-20.1); Calc. Creatinine Clearance 40 mL/min (70-130); Calcium 8.2 mg/dL (7.8-10.44); Carbon Dioxide 18 mmol/L (23-31); Chloride 110 mmol/L (98-107); Estimated GFR 24; Glucose 198 mg/dL (80-115); Potassium 3.9 mmol/L (3.5-5.1); Sodium 138 mmol/L (136-145)
[2023-03-26 21:41] LABS: Free T4 (Free Thyroxine) 1.02 ng/dL (0.70-1.48)
[2023-03-26] MEDS: Insulin Glargine 30 UNITS/0.3 ML VIAL SC SCH (21:50)
[2023-03-27 05:09] LABS: #Eosinphils 0.4 thou/uL (0.0-0.7); #Monocytes 0.5 thou/uL (0.11-0.59); #Neutrophils 3.4 thou/uL (1.40-6.50); %Basophils 0.5 % (0.0-1.0); %Eosinophils 6.5 % (0.0-10.0); %Lymphocytes 23.8 % (21.0-51.0); %Monocytes 9.1 % (0.0-10.0); Hematocrit 22.2 % (36.0-47.0); Hemoglobin 7.4 g/dL (12.0-16.0); Mean Corpuscular HGB CONC 33.3 g/dL (32.0-36.0); Mean Corpuscular Hemoglobin 30.7 pg (27.0-31.0); Mean Corpuscular Volume 92.1 fl (78.0-98.0); Mean Platelet Volume 9.2 fL (7.4-10.4); Platelet Count 136 10x3/uL (130-400); RBC Distribution Width 13.6 % (11.5-14.5); Red Blood Cell (RBC) Count 2.41 mill/uL (4.20-5.40); White Blood Cell (WBC) Count 5.7 10x3/uL (4.8-10.8)
[2023-03-27 05:23] LABS: PTT 238.6 sec (22.9-36.1)
[2023-03-27 05:47] LABS: Anion Gap 14 mmol/L (10-20); BUN (Urea Nitrogen) 28 mg/dL (9.8-20.1); Calc. Creatinine Clearance 39 mL/min (70-130); Calcium 7.7 mg/dL (7.8-10.44); Carbon Dioxide 21 mmol/L (23-31); Chloride 108 mmol/L (98-107); Estimated GFR 23; Glucose 139 mg/dL (80-115); Potassium 3.9 mmol/L (3.5-5.1); Sodium 139 mmol/L (136-145)
[2023-03-27] MEDS: Furosemide 40 MG/4 ML VIAL SLOW IVP SCH ×2 (06:54→13:59)
[2023-03-27] MEDS ORDERED: Epoetin (ESRD) 20,000 UNITS/ML MDV SC SCH (07:45)
[2023-03-27 08:23] LABS: PTT 151.8 sec (22.9-36.1)
[2023-03-27] MEDS: Ferrous Sulfate 325 MG TAB PO SCH (08:27)
[2023-03-27] MEDS: Carvedilol 6.25 MG TAB PO SCH ×2 (08:27→21:08)
[2023-03-27] MEDS: Gabapentin 300 MG CAP PO SCH ×2 (08:29→21:07)
[2023-03-27] MEDS ORDERED: Spironolactone 25 MG TAB PO SCH (09:00)
[2023-03-27] MEDS ORDERED: NIFEdipine XL 30 MG ER.TAB PO SCH (09:00)
[2023-03-27] MEDS ORDERED: Epoetin (ESRD) 10,000 UNITS/ML VIAL SC SCH (12:00)
[2023-03-27] MEDS ORDERED: hydrALAZINE 20 MG/ML VIAL SLOW IVP PRN (15:01)
[2023-03-27] MEDS: Famotidine 20 MG TAB PO SCH (21:08)
[2023-03-27] MEDS: Insulin Glargine 30 UNITS/0.3 ML VIAL SC SCH (21:08)
[2023-03-28 04:55] LABS: #Eosinphils 0.3 thou/uL (0.0-0.7); #Monocytes 0.4 thou/uL (0.11-0.59); #Neutrophils 2.7 thou/uL (1.40-6.50); %Basophils 0.9 % (0.0-1.0); %Eosinophils 5.6 % (0.0-10.0); %Neutrophils 58.1 % (42.0-75.0); Hematocrit 23.4 % (36.0-47.0); Hemoglobin 7.8 g/dL (12.0-16.0); Mean Corpuscular HGB CONC 33.3 g/dL (32.0-36.0); Mean Corpuscular Hemoglobin 30.5 pg (27.0-31.0); Mean Corpuscular Volume 91.4 fl (78.0-98.0); Mean Platelet Volume 9.3 fL (7.4-10.4); Platelet Count 121 10x3/uL (130-400); RBC Distribution Width 13.6 % (11.5-14.5); Red Blood Cell (RBC) Count 2.56 mill/uL (4.20-5.40); White Blood Cell (WBC) Count 4.7 10x3/uL (4.8-10.8)
[2023-03-28 05:21] LABS: Anion Gap 16 mmol/L (10-20); BUN (Urea Nitrogen) 30 mg/dL (9.8-20.1); Calc. Creatinine Clearance 30 mL/min (70-130); Carbon Dioxide 23 mmol/L (23-31); Cardiac Risk 3.9 (Less than 4.5); Chloride 109 mmol/L (98-107); Cholesterol 134 mg/dl (< 200 Desired); Estimated GFR 17; Glucose 141 mg/dL (80-115); HDL Cholesterol 34 mg/dL (>60 Neg Risk); LDL Cholesterol, Calculated 73 mg/dL; Phosphorus 4.4 mg/dL (2.3-4.7); Potassium 3.8 mmol/L (3.5-5.1); Sodium 144 mmol/L (136-145); Triglycerides 137 mg/dL (Less than 150)
[2023-03-28] MEDS: Furosemide 40 MG/4 ML VIAL SLOW IVP SCH (06:36)
[2023-03-28] MEDS ORDERED: NIFEdipine XL 30 MG ER.TAB PO SCH (07:56)
[2023-03-28 08:53] LABS: Iron 45 ug/dL (50-170); Iron Binding Capacity, Total 211 mcg/dL (265-497)
[2023-03-28] MEDS ORDERED: hydrALAZINE 25 MG TAB PO SCH (09:00)
[2023-03-28] MEDS ORDERED: NIFEdipine XL 60 MG ER.TAB PO SCH (09:00)
[2023-03-28] MEDS ORDERED: glipiZIDE 5 MG TAB PO SCH (09:00)
[2023-03-28] MEDS: Gabapentin 300 MG CAP PO SCH ×2 (09:05→21:21)
[2023-03-28] MEDS: Carvedilol 6.25 MG TAB PO SCH ×2 (09:05→21:21)
[2023-03-28] MEDS: Ferrous Sulfate 325 MG TAB PO SCH (09:05)
[2023-03-28] MEDS ORDERED: Iron, Sodium Ferric Gluconate 250 MG in Sodium Chloride 0.9% 250 ML 250 ML IVPB SCH (10:00)
[2023-03-28 15:18] LABS: Bilirubin Negative (Negative); Blood, Urine Moderate (Negative); Glucose, Urine (Dipstick) 100 mg/dL (Negative); Ketone, Urine Negative (Negative); Leukocyte Negative (Negative); Nitrite Negative (Negative); Protein, Urine (Dipstick) > or equal to 300 mg/dL (Neg-Trace); Specific Gravity, Urine 1.015 (1.005-1.030); Urobilinogen 0.2 mg/dL (Less than 2); pH, Urine 6.5 (5.0-9.0)
[2023-03-28 15:22] LABS: Clarity Clear (Clear)
[2023-03-28 15:30] LABS: Bacteria/HPF None Seen HPF (None Seen); RBC/HPF 0-3 HPF (0-3); Squamous Epithelial 0-3 HPF (0-3); WBC/HPF 0-3 HPF (0-3)
[2023-03-28 15:52] LABS: Creatinine, Urine 51.55 mg/dL (47-110)
[2023-03-28] MEDS: Famotidine 20 MG TAB PO SCH (21:21)
[2023-03-28] MEDS: Insulin Glargine 30 UNITS/0.3 ML VIAL SC SCH (22:19)
[2023-03-29 04:59] LABS: #Eosinphils 0.2 thou/uL (0.0-0.7); #Monocytes 0.5 thou/uL (0.11-0.59); #Neutrophils 2.5 thou/uL (1.40-6.50); %Basophils 0.8 % (0.0-1.0); %Eosinophils 4.3 % (0.0-10.0); %Lymphocytes 33.7 % (21.0-51.0); %Monocytes 10.2 % (0.0-10.0); %Neutrophils 49.6 % (42.0-75.0); Hematocrit 21.8 % (36.0-47.0); Hemoglobin 7.3 g/dL (12.0-16.0); Mean Corpuscular HGB CONC 33.5 g/dL (32.0-36.0); Mean Corpuscular Hemoglobin 30.9 pg (27.0-31.0); Mean Corpuscular Volume 92.4 fl (78.0-98.0); Mean Platelet Volume 9.5 fL (7.4-10.4); Platelet Count 120 10x3/uL (130-400); RBC Distribution Width 13.7 % (11.5-14.5); Red Blood Cell (RBC) Count 2.36 mill/uL (4.20-5.40); White Blood Cell (WBC) Count 5.1 10x3/uL (4.8-10.8)
[2023-03-29 05:29] LABS: Anion Gap 13 mmol/L (10-20); BUN (Urea Nitrogen) 36 mg/dL (9.8-20.1); Calc. Creatinine Clearance 30 mL/min (70-130); Calcium 8.3 mg/dL (7.8-10.44); Carbon Dioxide 23 mmol/L (23-31); Chloride 108 mmol/L (98-107); Estimated GFR 18; Glucose 117 mg/dL (80-115); Potassium 3.5 mmol/L (3.5-5.1); Sodium 140 mmol/L (136-145)
[2023-03-29] MEDS ORDERED: Furosemide 40 MG/4 ML VIAL SLOW IVP SCH (09:00)
[2023-03-29] MEDS: Carvedilol 25 MG TAB PO SCH ×2 (09:51→22:23)
[2023-03-29] MEDS: NIFEdipine XL 90 MG ER.TAB PO SCH (09:51)
[2023-03-29] MEDS: Empagliflozin 10 MG TAB PO SCH (09:51)
[2023-03-29] MEDS: Ferrous Sulfate 325 MG TAB PO SCH (09:52)
[2023-03-29] MEDS: Gabapentin 300 MG CAP PO SCH ×2 (09:52→22:22)
[2023-03-29] MEDS: Carvedilol 6.25 MG TAB PO SCH (11:01)
[2023-03-29] MEDS: Iron, Sodium Ferric Gluconate 250 MG in Sodium Chloride 0.9% 250 ML 250 ML IVPB SCH (14:42)
[2023-03-29] MEDS ORDERED: FLU VACC QS2023(65UP)/MF59C/PF 60 MCG/0.5 ML SYRINGE IM ONE (17:45)
[2023-03-29] MEDS: Famotidine 20 MG TAB PO SCH (22:18)
[2023-03-29] MEDS: Insulin Glargine 30 UNITS/0.3 ML VIAL SC SCH (22:18)
[2023-03-30 06:31] LABS: #Eosinphils 0.2 thou/uL (0.0-0.7); #Monocytes 0.6 thou/uL (0.11-0.59); #Neutrophils 5.1 thou/uL (1.40-6.50); %Basophils 0.5 % (0.0-1.0); %Lymphocytes 21.3 % (21.0-51.0); %Monocytes 7.9 % (0.0-10.0); %Neutrophils 66.4 % (42.0-75.0); Hematocrit 21.7 % (36.0-47.0); Hemoglobin 7.3 g/dL (12.0-16.0); Mean Corpuscular HGB CONC 33.6 g/dL (32.0-36.0); Mean Corpuscular Hemoglobin 31.3 pg (27.0-31.0); Mean Corpuscular Volume 93.1 fl (78.0-98.0); Mean Platelet Volume 9.6 fL (7.4-10.4); Platelet Count 133 10x3/uL (130-400); RBC Distribution Width 14.1 % (11.5-14.5); Red Blood Cell (RBC) Count 2.33 mill/uL (4.20-5.40); White Blood Cell (WBC) Count 7.7 10x3/uL (4.8-10.8)
[2023-03-30 07:04] LABS: Anion Gap 11 mmol/L (10-20); BUN (Urea Nitrogen) 32 mg/dL (9.8-20.1); Calc. Creatinine Clearance 32 mL/min (70-130); Calcium 8.5 mg/dL (7.8-10.44); Carbon Dioxide 24 mmol/L (23-31); Chloride 109 mmol/L (98-107); Estimated GFR 19; Glucose 84 mg/dL (80-115); Potassium 3.6 mmol/L (3.5-5.1); Sodium 140 mmol/L (136-145)
[2023-03-30 07:15] LABS: Albumin 3.8 g/dL (3.4-4.8)
[2023-03-30 07:40] VITALS: BMI 37.4
[2023-03-30] MEDS: Gabapentin 300 MG CAP PO SCH (09:03)
[2023-03-30] MEDS: Ferrous Sulfate 325 MG TAB PO SCH (09:03)
[2023-03-30] MEDS: Carvedilol 25 MG TAB PO SCH (09:03)
[2023-03-30] MEDS: NIFEdipine XL 90 MG ER.TAB PO SCH (09:04)
[2023-03-30] MEDS: Empagliflozin 10 MG TAB PO SCH (09:05)
[2023-03-30 12:41] VITALS: TEMP 97.5
[2023-03-30 13:26] VITALS: BP 163/74
[2023-03-30] MEDS: Iron, Sodium Ferric Gluconate 250 MG in Sodium Chloride 0.9% 250 ML 250 ML IVPB SCH (13:36)
== END 2023-03-30 19:10 | disposition home or self-care (01) | DRG 291 ==
LOC: IMCU/EMU 16:19 → 2NO 03-27 19:27
PROVIDERS: ADMIT Internal Medicine; ATTEND Internal Medicine
DX: I13.0 Hypertensive heart and chronic kidney disease with heart failure and stage 1 through stage 4 chronic kidney disease, or unspecified chronic kidney disease (principal); I50.33 Acute on chronic diastolic (congestive) heart failure; J96.01 Acute respiratory failure with hypoxia; N18.4 Chronic kidney disease, stage 4 (severe); N17.9 Acute kidney failure, unspecified; E11.22 Type 2 diabetes mellitus with diabetic chronic kidney disease; E11.40 Type 2 diabetes mellitus with diabetic neuropathy, unspecified; Z96.652 Presence of left artificial knee joint; D63.1 Anemia in chronic kidney disease; Z79.4 Long term (current) use of insulin; Z79.84 Long term (current) use of oral hypoglycemic drugs; Z79.899 Other long term (current) drug therapy; Z98.890 Other specified postprocedural states; Z90.49 Acquired absence of other specified parts of digestive tract; Z90.710 Acquired absence of both cervix and uterus; Z90.89 Acquired absence of other organs
CPT/HCPCS: 36415; 36416; 78451; 80048; 80061; 81001; 82040; 82274; 82570; 82728; 83036; 83540; 83550; 83735; 83880; 83970; 84100; 84156; 84439; 84443; 84481; 84540; 85025; 85730; 93306; 93798; A9540; J0360; J1644; J1815; J1940; J2916; J7050; Q4081